=== PATIENT | female | born 1995 | race Hispanic/Latino ===

== ENCOUNTER 2017-07-25 14:15 | Emergency (ER) | payer OTHER, SELFPAY ==
[2017-07-25 15:40] LABS: Absolute Lymphocytes (CBC) 2.3 K/uL (0.7-4.9); Absolute Monocytes 0.6 K/uL (0.1-1.3); Absolute Neutrophil 5.3 K/uL (1.8-8.0); Basophils % 0.9 % (0-1.3); Eosinophils % 0.9 % (0-4.4); Hematocrit 30.7 % (36.0-45.0); Lymphocytes % 27.6 % (15.3-44.8); MCH 18.2 pg (27.0-35.0); MCV 58.8 fL (80-100); MPV 8.7 fL (7.6-11.3); Monocytes % 7.4 % (3.3-12.3); RBC Red Blood Cell Count 5.23 M/uL (3.86-4.86)
--- NOTE | 2017-07-25 15:40 | RAD REPORT ---
EXAM DESCRIPTION: US - Transvaginal OB - 07/25/2017 3:11 pm CLINICAL HISTORY: Vaginal bleeding, possible COMPARISON: None. TECHNIQUE: Endovaginal and limited transabdominal sonography performed. FINDINGS: Uterus is approximately 8.8 x 5.0 x 5.5 cm. No myometrial based mass identifiable. There i s a thickened, heterogeneous endometrial cavity. No gestational sac or sac remnant. No focal mass or polyp. The thickened endometrial stripe is believed to be a combination of endometrial tissue and hem orrhagic material. Right ovary is identified and unremarkable in appearance. No right adnexal mass. Left ovary was not i dentifiable. No left adnexal mass seen. Ectopic is not suspected on the current examination . No hemorrhage or free fluid in the cul-de-sac. IMPRESSION: Thickened endometrium and hemorrhagic material in the endometrial cavity. No gestational sac or sac remnant identified. No mass or polyp seen. Normal right ovary. Nonvisualization of the left ovary. No adnexal mass to suspect ectopic .
[2017-07-25 15:50] LABS: BUN Blood Urea Nitrogen 10 mg/dL (6-20); Bicarbonate 25 mEq/L (21-31); Glomerular Filtration Rate > 90 mL/min (=/>90); Glucose Level 88 mg/dL (65-120); Potassium 3.5 mEq/L (3.6-5.0); Sodium Level 137 mEq/L (135-145)
[2017-07-25] MEDS ORDERED: METHYLERGONOVINE 0.2MG/ML AMP IM ONE (16:29)
[2017-07-25] MEDS ORDERED: NA CHLORIDE 0.9% 1,000 ML ONE (16:29)
[2017-07-25] MEDS ORDERED: HYDROCODONE/APAP 10/325 TAB ONE (16:38)
--- NOTE | 2017-07-25 16:57 | EDPHYS ---
Physician Documentation [facility] Name: Mana Duque Age: 22 yrs Sex: Female : 1995 Arrival Date: 07/25/2017 Time: 14:15 Bed 5 Private MD: ED Physician Curry Garay HPI: 07/25 16:53 This 22 yrs old Female presents to ER via Ambulatory with complaints of gs Vaginal Bleeding, + Preg <12wks. 16:53 The patient presents to the emergency department with abdominal pain, of the suprapubic gs area, right lower quadrant and left lower quadrant, vaginal bleeding, that is moderate. The estimated gestational age is 8 weeks. Previous pregnancies: in previous pregnancies patient has had. Associated signs and symptoms: Pertinent negatives: fever. The patient has not experienced similar symptoms in the past. The patient has not recently seen a physician. 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 - Social history:: Smoking status: Patient/guardian denies using tobacco. ROS: 16:53 All other systems are negative. gs Exam: 16:53 Head/Face: Normocephalic, atraumatic. Eyes: Pupils equal round and reactive to light, gs extra-ocular motions intact. Lids and lashes normal. Conjunctiva and sclera are non-icteric and not injected. Cornea within normal limits. Periorbital areas with no swelling, redness, or edema. ENT: Nares patent. No nasal discharge, no septal abnormalities noted. Tympanic membranes are normal and external auditory canals are clear. Oropharynx with no redness, swelling, or masses, exudates, or evidence of obstruction, uvula midline. Mucous membranes moist. Neck: Trachea midline, no thyromegaly or masses palpated, and no cervical lymphadenopathy. Supple, full range of motion without nuchal rigidity, or vertebral point tenderness. No Meningismus. Chest/axilla: Normal chest wall appearance and motion. Nontender with no deformity. No lesions are appreciated. Cardiovascular: Regular rate and rhythm with a normal S1 and S2. No gallops, murmurs, or rubs. Normal PMI, no JVD. No pulse deficits. Respiratory: Lungs have equal breath sounds bilaterally, clear to auscultation and percussion. No rales, rhonchi or wheezes noted. No increased work of breathing, no retractions or nasal flaring. Abdomen/GI: Soft, non-tender, with normal bowel sounds. No distension or tympany. No guarding or rebound. No evidence of tenderness throughout. Back: No spinal tenderness. No costovertebral tenderness. Full range of motion. Skin: Warm, dry with normal turgor. Normal color with no rashes, no lesions, and no evidence of cellulitis. MS/ Extremity: Pulses equal, no cyanosis. Neurovascular intact. Full, normal range of motion. Neuro: Awake and alert, GCS 15, oriented to person, place, time, and situation. Cranial nerves II-XII grossly intact. Motor strength 5/5 in all extremities. Sensory grossly intact. Cerebellar exam normal. Normal gait. 16:53 Constitutional: The patient appears alert, awake. 16:53 : Pelvic Exam: External exam: is normal, Speculum exam: moderate bleeding, os that is open, bimanual exam reveals normal findings, no cervical motion tenderness, no adnexa tenderness or masses bilaterally. Vital Signs: 14:25 BP 128 / 89; Pulse 108; Resp 19; Temp 98.4; Pulse Ox 100% on R/A; Weight 83.91 kg; aj Height 5 ft. 7 in. (170.18 cm); Pain 10/10; 16:04 BP 122 / 72; Pulse 93; Resp 18; Pulse Ox 99% ; sv 17:01 BP 114 / 80; Pulse 96; Resp 18; Pulse Ox 100% ; sv 14:25 Body Mass Index 28.97 (83.91 kg, 170.18 cm) aj MDM: 14:42 Patient medically screened. 16:53 Differential diagnosis: threatened Ab, complete Ab, retained Ab. Data reviewed: vital gs signs, nurses notes. Response to treatment: the patient's symptoms have markedly improved after treatment. Physician consultation: Bailey Pham MD regarding consult, patient's condition, need to evaluate the patient as soon as possible, and will see patient in office. 07/25 14:43 Order name: Quantitative Hcg; Complete Time: 16:53 gs 07/25 14:43 Order name: Abo/rh Typing; Complete Time: 17:26 07/25 14:43 Order name: Basic Metabolic Panel; Complete Time: 16:53 07/25 14:43 Order name: CBC with Diff; Complete Time: 16:53 07/25 14:43 Order name: Transvaginal OB US; Complete Time: 15:43 07/25 14:43 Order name: IV Saline Lock; Complete Time: 15: 07/25 14:43 Order name: Labs collected and sent; Complete Time: 15: 07/25 14:43 Order name: NPO; Complete Time: 15: Administered Medications: 16:20 Drug: NS 0.9% 1000 ml Route: IV; Rate: 1 bolus; Site: right antecubital; sv 17:27 Follow up: Response: No adverse reaction; IV Status: Completed infusion; IV Intake: sv 1000ml 16:20 Drug: METHERgine 0.2 mg Route: IM; Site: right gluteus; sv 17:27 Follow up: Response: No adverse reaction sv 16:25 Drug: [place] 10 mg-325 mg 1 tabs Route: PO; sv 17:27 Follow up: Response: No adverse reaction sv Disposition: 07/25/17 16:56 Discharged to Home. Impression: Incomplete spontaneous without complication, Iron deficiency anemia. - Condition is Stable. - Discharge Instructions: Incomplete Miscarriage. - Prescriptions for Tylenol- Codeine #4 300-60 mg Oral Tablet - take 1 tablet by ORAL route every 6 hours As needed; 10 tablet. Methergine 0.2 mg Oral tablet - take 1 tablet by ORAL route every 8 hours; 6 tablet. Ferrous Sulfate 325 mg (65 mg Iron) Oral Tablet - take 1 tablet by ORAL route every 8 hours; 90 tablet. - Medication Reconciliation Form, Thank You Letter, Antibiotic Education, Prescription Opioid Use form. - Follow up: Private Physician; When: 2 - 3 days; Reason: Re-evaluation by your physician. Signatures: Dispatcher [employer] Ana Persaud RN Ayanna Molina RN RN aj Starr, Gregory, MD MD
--- NOTE | 2017-07-25 16:57 | ER ---
Nurse's Notes [facility] Name: Mana Duque Age: 22 yrs Sex: Female : 1995 Arrival Date: 07/25/2017 Time: 14:15 Bed 5 Private MD: Diagnosis: Incomplete spontaneous without complication;Iron deficiency anemia Presentation: 07/25 14:23 Presenting complaint: Patient states: Patient reports heavy vaginal bleeding since last aj night filling 4 pads per hour with large clots. Patient reports she is 8 weeks . Transition of care: patient was not received from another setting of care. Onset of symptoms was July 25, 2017. Care prior to arrival: None. 14:23 Method Of Arrival: Ambulatory aj 14:23 Acuity: TING 3 aj Triage Assessment: 14:25 General: Appears in no apparent distress. comfortable, Behavior is calm, cooperative, aj appropriate for age. Pain: Complains of pain in suprapubic area, right inguinal area and left inguinal area Pain currently is 10 out of 10 on a pain scale. Neuro: Level of Consciousness is awake, alert, obeys commands, Oriented to person, place, time, situation. Respiratory: Airway is patent Respiratory effort is even, unlabored, Respiratory pattern is regular, symmetrical. : Reports cramping, in bilateral vaginal bleeding that is with clots, heavy flow. Derm: Skin is intact, is healthy with good turgor, Skin is pink, warm \T\ dry. normal. 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 - Social history:: Smoking status: Patient/guardian denies using tobacco. Screenin:30 Abuse screen: Denies threats or abuse. Denies injuries from another. Nutritional sv screening: No deficits noted. Tuberculosis screening: No symptoms or risk factors identified. Fall Risk None identified. Assessment: 15:00 General: Appears in no apparent distress. comfortable, well developed, Behavior is sv calm, cooperative, appropriate for age. Pain: Denies pain. Neuro: Level of Consciousness is awake, alert, obeys commands, Oriented to person, place, time, situation, Moves all extremities. Full function. Respiratory: Respiratory effort is even, unlabored, Respiratory pattern is regular, symmetrical. : Reports vaginal bleeding that is bright red, with clots, moderate flow. Derm: Skin is pink, warm \T\ dry. Musculoskeletal: Range of motion: intact in all extremities. 15:44 Reassessment: Vaginal exam equipment set up. sv 16:20 Reassessment: Patient and/or family updated on plan of care and expected duration. Pain sv level reassessed. Patient is alert, oriented x 3, equal unlabored respirations, skin warm/dry/pink. Informed Dr Garay of pt's pain, medication ordered. Pain: Complains of pain in suprapubic area Pain currently is 10 out of 10 on a pain scale. Quality of pain is described as crampy, Is continuous. 17:27 Reassessment: Patient appears in no apparent distress at this time. No changes from sv previously documented assessment. Patient and/or family updated on plan of care and expected duration. Pain level reassessed. Patient is alert, oriented x 3, equal unlabored respirations, skin warm/dry/pink. Vital Signs: 14:25 BP 128 / 89; Pulse 108; Resp 19; Temp 98.4; Pulse Ox 100% on R/A; Weight 83.91 kg; aj Height 5 ft. 7 in. (170.18 cm); Pain 10/10; 16:04 BP 122 / 72; Pulse 93; Resp 18; Pulse Ox 99% ; sv 17:01 BP 114 / 80; Pulse 96; Resp 18; Pulse Ox 100% ; sv 14:25 Body Mass Index 28.97 (83.91 kg, 170.18 cm) ED Course: 14:15 Patient arrived in ED. as 14:25 Triage completed. aj 14:25 Arm band placed on left wrist. Patient placed in an exam room. aj 14:33 Curry Garay MD is Attending Physician. gs 15:10 Transvaginal OB US In Process Unspecified. EDMS 15:11 Ultrasound completed. aa4 15:30 Ana Chapin, MARKOS is Primary Nurse. sv 15:30 Patient has correct armband on for positive identification. Placed in gown. Bed in low sv position. Call light in reach. Door closed. Warm blanket given. Head of bed elevated. 15:30 Initial lab(s) drawn, by ED staff, sent to lab. Inserted saline lock: 20 gauge in right sv antecubital area, using aseptic technique. ,using aseptic technique. done by Jay [facility] Blood collected. 16:05 Assist provider with pelvic exam: Set up pelvic tray. Performed by Curry rivera Specimens sent to lab. POC passed, sent to pathology, Pt stated that she went to the bathroom in ultrasound and she felt like she passed the embryo and flushed the toilet. Pt stated that she didn't know what she was supposed to do. Pt crying at this time. Pt given verbal reassurance.. 17:28 IV discontinued, intact, bleeding controlled, No redness/swelling at site. Pressure sv dressing applied. Administered Medications: 16:20 Drug: NS 0.9% 1000 ml Route: IV; Rate: 1 bolus; Site: right antecubital; sv 17:27 Follow up: Response: No adverse reaction; IV Status: Completed infusion; IV Intake: sv 1000ml 16:20 Drug: METHERgine 0.2 mg Route: IM; Site: right gluteus; sv 17:27 Follow up: Response: No adverse reaction sv 16:25 Drug: [place] 10 mg-325 mg 1 tabs Route: PO; sv 17:27 Follow up: Response: No adverse reaction sv Intake: 17:27 IV: 1000ml; Total: 1000ml. sv Outcome: 16:56 Discharge ordered by . gs 17:28 Discharged to home ambulatory, with family. sv 17:28 Condition: stable 17:28 Discharge instructions given to patient, family, Instructed on discharge instructions, follow up and referral plans. no drinking with medication, no driving heavy equipment, medication usage, pelvic rest and increase fluids Demonstrated understanding of instructions, follow-up care, medications, Prescriptions given X 4. 17:30 Patient left the ED. sv Signatures: Dispatcher [employer] Ana Persaud RN RN sv Myers, Amanda, RN RN aj Martinez, Amelia as Frazier, Amanda aaCurry Gilliland MD MD
[2017-07-25 17:34] VITALS: TEMP 98.4
[2017-07-25 17:36] VITALS: BP 114/80; O2SAT 100
== END 2017-07-25 17:30 | disposition home or self-care (01) ==
LOC: ER 14:15
DX: O03.4 Incomplete spontaneous abortion without complication (principal); O99.011 Anemia complicating pregnancy, first trimester
CPT/HCPCS: 36415; 76817; 80048; 84702; 85025; 86900; 86901; 88305; 96360; 96372; 99284; J2210; J7030

== ENCOUNTER 2017-08-16 08:47 | Emergency (ER) | payer SELFPAY ==
[2017-08-16 09:48] LABS: Urine Blood TRACE (NEG); Urine Glucose NEGATIVE (NEG); Urine Protein NEGATIVE (NEG); Urine pH 5.5 (5.0-7.0)
[2017-08-16 09:49] LABS: Urine Bacteria <20 /HPF (<20); Urine RBC <5 /HPF (NONE SEEN)
[2017-08-16 09:50] LABS: Urine Culture Reflex Order NOT NEEDED
[2017-08-16 10:01] LABS: Bicarbonate 22 mEq/L (21-31); Glucose Level 83 mg/dL (65-120); Lipase 14 U/L (22-51); Sodium Level 135 mEq/L (135-145)
[2017-08-16 10:04] LABS: Absolute Lymphocytes (CBC) 2.1 K/uL (0.7-4.9); Absolute Monocytes 0.6 K/uL (0.1-1.3); Absolute Neutrophil 5.1 K/uL (1.8-8.0); Basophils % 0.4 % (0-1.3); Hematocrit 29.9 % (36.0-45.0); Lymphocytes % 26.8 % (15.3-44.8); MCH 19.1 pg (27.0-35.0); MCV 62.1 fL (80-100); MPV 8.6 fL (7.6-11.3); Monocytes % 7.1 % (3.3-12.3); RBC Red Blood Cell Count 4.82 M/uL (3.86-4.86)
[2017-08-16 10:07] LABS: ALT/SGPT 16 IU/L (10-60); AST/SGOT 18 IU/L (10-42); Albumin 3.9 g/dL (3.2-5.5); Alkaline Phosphatase 76 IU/L (42-121); BUN Blood Urea Nitrogen 11 mg/dL (6-20); Bilirubin Direct < 0.1 mg/dL (0-0.2); Bilirubin Total 0.2 mg/dL (0.3-1.2); Protein, Total 7.7 g/dL (6.0-8.3)
--- NOTE | 2017-08-16 10:15 | RAD REPORT ---
EXAM DESCRIPTION: US - Abdomen Exam Limited - 08/16/2017 10:10 am CLINICAL HISTORY: Right upper quadrant pain. COMPARISON: None. FINDINGS: The gallbladder demonstrates multiple shadowing gallstones. No pericholecystic fluid or ga llbladder wall thickening. The common bile duct is normal measuring 4 mm. The liver demonstrates no findings of intrahepatic biliary dilatation. IMPRESSION: Cholelithiasis.
[2017-08-16 11:01] LABS: Anisocytosis 2+; Blood Morphology Comment NOTED (NOT SEEN); Hypochromasia 2+; Ovalocytes 1+; Platelet Estimate ADEQ
--- NOTE | 2017-08-16 11:09 | EDPHYS ---
Physician Documentation [facility] Name: Mana Duque Age: 22 yrs Sex: Female : 1995 Arrival Date: 08/16/2017 Time: 08:51 Bed 20 Private MD: Lawanda Nj ED Physician Tre Guy HPI: 08/16 11:36 This 22 yrs old Female presents to ER via Ambulatory with complaints of kdr Stomach Pain. 11:36 The patient presents with abdominal pain in the epigastric area, in the right upper kdr quadrant, The patient states that she has had upper abdominal pain for the last few days that wraps around her infracostal margin more right than left. She has not had this before. She recently had a spontaneous miscarriage. She has no other c/o. Onset: The symptoms/episode began/occurred gradually, 3 day(s) ago. The symptoms radiate to both flanks, epigastric area and right upper quadrant. Associated signs and symptoms: Pertinent positives: constipation, nausea, Pertinent negatives: anorexia, blood in stools, chest pain, diarrhea, dysuria, fever, headache, hematuria, palpitations, shortness of breath, vaginal discharge, vomiting, vomiting blood. The symptoms are described as achy, burning, crampy, steady. Severity of pain: At its worst the pain was mild moderate just prior to arrival, in the emergency department the pain is unchanged. 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 - Social history:: Smoking status: Patient/guardian denies using tobacco. ROS: 11:36 Constitutional: Negative for fever, chills, and weight loss, Eyes: Negative for injury, kdr pain, redness, and discharge, Neck: Negative for injury, pain, and swelling, Cardiovascular: Negative for chest pain, palpitations, and edema, Respiratory: Negative for shortness of breath, cough, wheezing, and pleuritic chest pain, Back: Negative for injury and pain, : Negative for injury, bleeding, discharge, and swelling, MS/Extremity: Negative for injury and deformity, Skin: Negative for injury, rash, and discoloration, Neuro: Negative for headache, weakness, numbness, tingling, and seizure activity. Psych: Negative for depression, anxiety, suicide ideation, homicidal ideation, and hallucinations, Allergy/Immunology: Negative for hives, rash, and allergies, Endocrine: Negative for neck swelling, polydipsia, polyuria, polyphagia, and marked weight changes, Hematologic/Lymphatic: Negative for swollen nodes, abnormal bleeding, and unusual bruising. 11:36 Abdomen/GI: Positive for abdominal pain, Negative for nausea, abdominal cramps. Exam: 11:36 Constitutional: This is a well developed, well nourished patient who is awake, alert, kdr and in no acute distress. Head/Face: Normocephalic, atraumatic. ENT: Nares patent. No nasal discharge, no septal abnormalities noted. Tympanic membranes are normal and external auditory canals are clear. Oropharynx with no redness, swelling, or masses, exudates, or evidence of obstruction, uvula midline. Mucous membranes moist. Neck: Trachea midline, no thyromegaly or masses palpated, and no cervical lymphadenopathy. Supple, full range of motion without nuchal rigidity, or vertebral point tenderness. No Meningismus. Chest/axilla: Normal chest wall appearance and motion. Nontender with no deformity. No lesions are appreciated. Cardiovascular: Regular rate and rhythm with a normal S1 and S2. No gallops, murmurs, or rubs. Normal PMI, no JVD. No pulse deficits. Respiratory: Lungs have equal breath sounds bilaterally, clear to auscultation and percussion. No rales, rhonchi or wheezes noted. No increased work of breathing, no retractions or nasal flaring. Back: No spinal tenderness. No costovertebral tenderness. Full range of motion. Skin: Warm, dry with normal turgor. Normal color with no rashes, no lesions, and no evidence of cellulitis. MS/ Extremity: Pulses equal, no cyanosis. Neurovascular intact. Full, normal range of motion. Neuro: Awake and alert, GCS 15, oriented to person, place, time, and situation. Cranial nerves II-XII grossly intact. Motor strength 5/5 in all extremities. Sensory grossly intact. Cerebellar exam normal. Normal gait. Psych: Awake, alert, with orientation to person, place and time. Behavior, mood, and affect are within normal limits. 11:36 Abdomen/GI: Inspection: obese Bowel sounds: active, Palpation: soft, moderate abdominal tenderness, in the right upper quadrant, rebound tenderness, is not appreciated, tenderness to percussion, is appreciated in the epigastric area and right upper quadrant. Vital Signs: 09:16 BP 124 / 74; Pulse 79; Resp 18; Temp 97.9(TE); Pulse Ox 100% on R/A; Weight 90.72 kg; em Height 5 ft. 4 in. (162.56 cm); Pain 7/10; 10:14 BP 105 / 67; Pulse 68; Resp 18; Pulse Ox 99% on R/A; Pain 6/10; em 11:07 BP 112 / 81; Pulse 67; Resp 18; Pulse Ox 99% on R/A; Pain 2/10; em 09:16 Body Mass Index 34.33 (90.72 kg, 162.56 cm) em MDM: 09:29 Patient medically screened. kdr 11:36 Data reviewed: vital signs, nurses notes, lab test result(s), radiologic studies. kdr Counseling: I had a detailed discussion with the patient and/or guardian regarding: the historical points, exam findings, and any diagnostic results supporting the discharge/admit diagnosis, lab results, radiology results, the need for outpatient follow up. 08/16 09:15 Order name: Urine Microscopic Only; Complete Time: 10:18 jb1 08/16 09:19 Order name: Urine Dipstick--Ancillary (enter results); Complete Time: 10:18 bd 08/16 09:19 Order name: Urine --Ancillary (enter results); Complete Time: 10:18 bd 08/16 09:36 Order name: Basic Metabolic Panel; Complete Time: 10:18 kdr 08/16 09:36 Order name: CBC with Diff kdr 08/16 09:36 Order name: Creatinine for Radiology; Complete Time: 10:18 kdr 08/16 09:36 Order name: Hepatic Function; Complete Time: 10:18 kdr 08/16 09:36 Order name: Lipase; Complete Time: 10:18 kdr 08/16 09:36 Order name: IV Saline Lock; Complete Time: 09:47 kdr 08/16 09:36 Order name: Labs collected and sent; Complete Time: 09:47 [facility] 08/16 09:36 Order name: Urine Dipstick-Ancillary (obtain specimen); Complete Time: 09:47 kdr 08/16 09:36 Order name: US Abdomen Limited; Complete Time: 10:18 [facility] 08/16 10:10 Order name: Manual Differential EDMS Administered Medications: No medications were administered Disposition: 08/16/17 11:08 Discharged to Home. Impression: Abdominal and pelvic pain, Cholelithiasis. - Condition is Stable. - Discharge Instructions: Cholelithiasis, [id number], Abdominal Pain, Adult, [id number]. - Prescriptions for Bentyl 20 mg Oral Tablet - take 1 tablet by ORAL route every 6 hours As needed; 20 tablet. Pepcid 20 mg Oral Tablet - take 1 tablet by ORAL route every 12 hours for 5 days; 10 tablet. Zofran 4 mg Oral Tablet - take 1 tablet by ORAL route every 12 hours As needed; 6 tablet. Tramadol 50 mg Oral Tablet - take 1 tablet by ORAL route every 8 hours as needed; 12 tablet. - Medication Reconciliation Form, Thank You Letter, Prescription Opioid Use form. - Follow up: Lawanda Nj MD; When: 2 - 3 days; Reason: If symptoms return, Further diagnostic work-up, Recheck today's complaints, Continuance of care, Re-evaluation by your physician. - Problem is new. - Symptoms have improved. Signatures: Dispatcher [employer] EDMS Tre Guy MD MD kdr Roman Fontenot, PACKING MACHINE INSPECTOR PACKING MACHINE INSPECTOR em Palak Magaña RN RN Corrections: (The following items were deleted from the chart) 09:12 Allergies: NKA; 09:12 Home Meds: None; 09:12 PMHx: None; 09:12 PSHx: None; 09:12 Immunization history: Adult Immunizations not up to date, 09:12 Social history: Smoking status: Patient/guardian denies using tobacco, [facility]
--- NOTE | 2017-08-16 11:09 | ER ---
Nurse's Notes [facility] Name: Mana Duque Age: 22 yrs Sex: Female : 1995 Arrival Date: 08/16/2017 Time: 08:51 Bed 20 Private MD: Lawanda Nj Diagnosis: Abdominal and pelvic pain;Cholelithiasis Presentation: 08/16 09:10 Presenting complaint: Patient states: back pain that started on Saturday, now c/o em epigastric abd pain with N/D, denies fever, vomiting or pain with urination, last LMP 2 weeks ago. Transition of care: patient was not received from another setting of care. Onset of symptoms was August 02, 2017. Initial Sepsis Screen: Does the patient meet any 2 criteria? No. Patient's initial sepsis screen is negative. Does the patient have a suspected source of infection? No. Patient's initial sepsis screen is negative. Care prior to arrival: None. 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 - Social history:: Smoking status: Patient/guardian denies using tobacco. Screenin:17 Abuse screen: Denies threats or abuse. Nutritional screening: No deficits noted. em Tuberculosis screening: No symptoms or risk factors identified. Fall Risk None identified. Assessment: 09:19 General: Appears in no apparent distress. comfortable, Behavior is calm, cooperative, em Denies fever, chills. Pain: Complains of pain in epigastric area, right upper quadrant and left upper quadrant Pain currently is 7 out of 10 on a pain scale. Neuro: Level of Consciousness is awake, alert, obeys commands, Oriented to person, place, time, situation. Cardiovascular: Capillary refill < 3 seconds Patient's skin is warm and dry. Respiratory: Airway is patent Respiratory effort is even, unlabored, Respiratory pattern is regular, symmetrical. GI: Abdomen is round non-distended, Bowel sounds present X 4 quads. Abd is soft X 4 quads Abdomen is tender to palpation in right upper quadrant and left upper quadrant Reports diarrhea, nausea, Patient currently denies vomiting. : Urine is clear. EENT: No signs and/or symptoms were reported regarding the EENT system. Derm: Skin is intact, Skin is pink, warm \T\ dry. Musculoskeletal: Range of motion: intact in all extremities. 09:25 Reassessment: Patient appears in no apparent distress at this time. I agree with above iw assessment by Roman Fontenot LVN. 10:37 Reassessment: Patient appears in no apparent distress at this time. Patient and/or em family updated on plan of care and expected duration. Pain level reassessed. Patient is alert, oriented x 3, equal unlabored respirations, skin warm/dry/pink. 11:17 Reassessment: Patient appears in no apparent distress at this time. Patient and/or em family updated on plan of care and expected duration. Pain level reassessed. Patient is alert, oriented x 3, equal unlabored respirations, skin warm/dry/pink. Patient states feeling better. Patient states symptoms have improved. Vital Signs: 09:16 BP 124 / 74; Pulse 79; Resp 18; Temp 97.9(TE); Pulse Ox 100% on R/A; Weight 90.72 kg; em Height 5 ft. 4 in. (162.56 cm); Pain 7/10; 10:14 BP 105 / 67; Pulse 68; Resp 18; Pulse Ox 99% on R/A; Pain 6/10; em 11:07 BP 112 / 81; Pulse 67; Resp 18; Pulse Ox 99% on R/A; Pain 2/10; em 09:16 Body Mass Index 34.33 (90.72 kg, 162.56 cm) em ED Course: 08:51 Patient arrived in ED. na 08:52 Lawanda Nj MD is Private Physician. na 09:04 Roman Fontenot LVN is Primary Nurse. em 09:11 Triage completed. iw 09:15 Urine collected: clean catch specimen, cloudy, grant colored. jb1 09:18 Arm band placed on. em 09:21 Patient has correct armband on for positive identification. Bed in low position. Call em light in reach. Side rails up X2. Adult w/ patient. 09:21 No provider procedures requiring assistance completed. em 09:29 Rittger, Tre, MD is Attending Physician. kdr 09:46 Initial lab(s) drawn, by me, sent to lab. Inserted saline lock: 20 gauge in right em antecubital area, using aseptic technique. Blood collected. 09:51 Ultrasound completed. Other: AT BEDSIDE/PORTABLE. aa4 09:52 US Abdomen Limited In Process Unspecified. EDMS 11:07 Lawanda Nj MD is Referral Physician. kdr 11:20 IV discontinued, intact, bleeding controlled, No redness/swelling at site. Pressure em dressing applied. Administered Medications: No medications were administered Outcome: 11:08 Discharge ordered by . kdr 11:19 Discharged to home ambulatory. em 11:19 Condition: good 11:19 Discharge instructions given to patient, Instructed on discharge instructions, follow up and referral plans. medication usage, Demonstrated understanding of instructions, follow-up care, medications, Prescriptions given X 4. 11:21 Patient left the ED. em Signatures: Dispatcher [employer] EDMS Juanjose Decker jb1 Tre Guy MD MD kdr Sam Beebe Edgar, CONTACT LENS FLASHING PUNCHER CONTACT LENS FLASHING PUNCHER em Palak Magaña, RN RN iw Ayanna Beltran aa4 Corrections: (The following items were deleted from the chart) 09:10 Presenting complaint: Patient states: has had sore throat, body aches, chills iw since last night iw 09:10 Transition of care: patient was not received from another setting of care. [facility] 09:10 Onset of symptoms was August 16, 2017 [facility] 09:10 Initial Sepsis Screen: Does the patient meet any 2 criteria? No. Patient's initial sepsis screen is negative. Does the patient have a suspected source of infection? No. Patient's initial sepsis screen is negative. iw 09:10 Care prior to arrival: None. [facility] 09:10 Method Of Arrival: Ambulatory [facility] 09:10 Acuity: TING 4 [facility] 09:12 Allergies: NKA; 09:12 Home Meds: None; 09:12 PMHx: None; 09:12 PSHx: None; 09:12 Immunization history: Adult Immunizations not up to date, 09:12 Social history: Smoking status: Patient/guardian denies using tobacco, [facility] 09:12 BP 102 / 60; Pulse 103bpm; Resp 18bpm; Spontaneous; Pulse Ox 100% RA; Temp 97.7F iw Temporal; 73.48 kg; Height 5 ft. 3 in.; BMI: 28.7; Pain 4/10; 09:12 LMP 2014 09:12 Arm band placed on 09:10 Presenting complaint: Patient states: back pain that started on Saturday, now c/o em epigastric abd pain with N/D, denies fever or vomiting, last LMP 2 weeks ago em
[2017-08-16 11:27] VITALS: TEMP 97.9
[2017-08-16 11:28] VITALS: O2SAT 99
[2017-08-16 11:30] VITALS: BP 112/81
== END 2017-08-16 11:21 | disposition home or self-care (01) ==
LOC: ER 08:47
DX: K80.20 Calculus of gallbladder without cholecystitis without obstruction (principal)
CPT/HCPCS: 36415; 76705; 80048; 80076; 81003; 81015; 81025; 83690; 85025; 99284

== ENCOUNTER 2017-10-15 16:38 | Emergency (ER) | payer SELFPAY ==
[2017-10-15] MEDS ORDERED: NA CHLORIDE 0.9% 1,000 ML ONE (17:11)
[2017-10-15 17:21] LABS: Absolute Lymphocytes (CBC) 3.1 K/uL (0.7-4.9); Absolute Monocytes 0.6 K/uL (0.1-1.3); Absolute Neutrophil 5.2 K/uL (1.8-8.0); Basophils % 0.4 % (0-1.3); Eosinophils % 1.1 % (0-4.4); Hematocrit 25.5 % (36.0-45.0); MCH 20.6 pg (27.0-35.0); MCV 65.6 fL (80-100); MPV 7.4 fL (7.6-11.3); Monocytes % 6.9 % (3.3-12.3); RBC Red Blood Cell Count 3.89 M/uL (3.86-4.86)
[2017-10-15 17:25] LABS: Protime INR 1.08
[2017-10-15 17:34] LABS: BUN Blood Urea Nitrogen 10 mg/dL (7-18); Bicarbonate 24 mmol/L (21-32); Glucose Level 109 mg/dL (74-106); Potassium 3.8 mmol/L (3.5-5.1); Sodium Level 135 mmol/L (136-145)
[2017-10-15 18:34] LABS: Urine Blood 2+ (NEG); Urine Glucose NEGATIVE (NEG); Urine Protein NEGATIVE (NEG); Urine Specific Gravity <1.005 (1.005-1.030); Urine pH 5.5 (5.0-7.0)
--- NOTE | 2017-10-15 19:47 | ER ---
Nurse's Notes [facility] Name: Mana Duque Age: 22 yrs Sex: Female : 1995 Arrival Date: 10/15/2017 Time: 16:40 Bed 5 Private MD: Lawanda Nj Diagnosis: Abnormal uterine and vaginal bleeding, unspecified;Iron deficiency anemia Presentation: 10/15 16:45 Presenting complaint: Patient states: vaginal bleeding that began as spotting on Saturday aa5 and became heavier since today around 0400 and has gotten heavier throughout the day. Pt reports abdominal cramping. Pt reports having a miscarriage about a month ago. Pt appears pale. 16:45 Care prior to arrival: None. aa5 16:45 Transition of care: patient was not received from another setting of care. Onset of aa5 symptoms was October 15, 2017. Risk Assessment: Do you want to hurt yourself or someone else? Patient reports no desire to harm self or others. Initial Sepsis Screen: Does the patient meet any 2 criteria? No. Patient's initial sepsis screen is negative. Does the patient have a suspected source of infection? No. Patient's initial sepsis screen is negative. 16:45 Acuity: TING 2 aa5 16:45 Method Of Arrival: Ambulatory aa5 [employer]ER: 20:06 LMP 10/15/2017 aj Historical: - Allergies: 16:47 No Known Allergies; aa5 - PMHx: 16:47 None; aa5 - PSHx: 16:47 ; hernia; aa5 - Immunization history:: Adult Immunizations Adult Immunizations up to date. - Ebola Screening: : No symptoms or risks identified at this time. - Family history:: not pertinent. - Social history:: Smoking status: Patient/guardian denies using tobacco. - Hospitalizations: : No recent hospitalization is reported. Screenin:26 Abuse screen: Denies threats or abuse. Denies injuries from another. Nutritional aj screening: No deficits noted. Tuberculosis screening: No symptoms or risk factors identified. Fall Risk None identified. Assessment: 17:26 General: Appears in no apparent distress. comfortable, Behavior is calm, cooperative, aj appropriate for age. Pain: Denies pain. Neuro: Level of Consciousness is awake, alert, obeys commands, Oriented to person, place, time, situation, Appropriate for age. Respiratory: Airway is patent Respiratory effort is even, unlabored, Respiratory pattern is regular, symmetrical. GI: Abdomen is flat, non-distended. : bloody, Reports vaginal bleeding that is with clots, heavy flow. Derm: Skin is intact, is healthy with good turgor, Skin is pale. 18:31 Reassessment: Patient appears in no apparent distress at this time. No changes from aj previously documented assessment. Patient and/or family updated on plan of care and expected duration. Pain level reassessed. Patient is alert, oriented x 3, equal unlabored respirations, skin warm/dry/pink. Patient denies pain at this time. 20:05 Reassessment: Patient appears in no apparent distress at this time. No changes from aj previously documented assessment. Patient and/or family updated on plan of care and expected duration. Pain level reassessed. Patient is alert, oriented x 3, equal unlabored respirations, skin warm/dry/pink. Patient denies pain at this time. Patient states symptoms have improved. Vital Signs: 16:47 BP 121 / 73; Pulse 113; Resp 18 S; Temp 97.8(O); Pulse Ox 100% on R/A; aa5 18:29 BP 115 / 68; Pulse 98; Resp 20; Pulse Ox 99% on R/A; aj 20:05 BP 116 / 78; Pulse 94; Resp 16; Pulse Ox 99% on R/A; aj ED Course: 16:40 Patient arrived in ED. sb2 16:41 Lawanda Nj MD is Private Physician. sb2 16:49 Ayanna Corona, RN is Primary Nurse. aj 16:49 Arm band placed on Patient placed in an exam room, on a stretcher. aa5 16:52 Krishna Dobbs MD is Attending Physician. rn 16:56 Triage completed. aa5 17:26 Patient has correct armband on for positive identification. aj 17:26 No provider procedures requiring assistance completed. Inserted saline lock: 18 gauge shabbir in right antecubital area, using aseptic technique. Blood collected. 19:09 Assist provider with pelvic exam: Set up pelvic tray. Performed by Krishna shea Patient tolerated well. 20:05 IV discontinued, intact, bleeding controlled, No redness/swelling at site. Pressure aj dressing applied. Administered Medications: 17:25 Drug: NS 0.9% 1000 ml Route: IV; Rate: 1000 ml; Site: right antecubital; aj 20:07 Follow up: Response: No adverse reaction; IV Status: Completed infusion; IV Intake: aj 1000ml Intake: 20:07 IV: 1000ml; Total: 1000ml. aj Outcome: 19:46 Discharge ordered by . rn 20:05 Discharged to home ambulatory, with family. aj 20:05 Condition: good 20:05 Discharge instructions given to patient, Instructed on discharge instructions, follow up and referral plans. medication usage, Demonstrated understanding of instructions, follow-up care, medications, Prescriptions given X 1. 20:08 Patient left the ED. aj Signatures: Ayanna Corona RN RN Krishna Montana MD MD rn Calderon, Audri, RN RN aa5 Caity Holder2
--- NOTE | 2017-10-15 19:47 | EDPHYS ---
Physician Documentation [facility] Name: Mana Duque Age: 22 yrs Sex: Female : 1995 Arrival Date: 10/15/2017 Time: 16:40 Bed 5 Private MD: Lawanda Nj ED Physician Krishna Dobbs HPI: 10/15 17:06 This 22 yrs old Female presents to ER via Ambulatory with complaints of rn Vaginal Bleeding - CLOTTING. 17:06 The patient presents with vaginal bleeding that is. Onset: The symptoms/episode rn began/occurred 3 day(s) ago. Associated signs and symptoms: Pertinent positives: vaginal bleeding. Severity of symptoms: At their worst the symptoms were moderate, in the emergency department the symptoms are unchanged. The patient has not experienced similar symptoms in the past. The patient has not recently seen a physician. Reports miscarriage 1.5 months ago, has had 2 regular periods since then, no sex without condom, doesn't think she is , + vaginal bleeding that got worse today but started 3 days ago, no hx of heavy vaginal bleeding, no anticoagulation, no trauma. + lightheaded.. 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 - Ebola Screening: : No symptoms or risks identified at this time. - Family history:: not pertinent. - Social history:: Smoking status: Patient/guardian denies using tobacco. - Hospitalizations: : No recent hospitalization is reported. ROS: 17:06 Constitutional: Negative for fever, chills, and weight loss, Eyes: Negative for injury, rn pain, redness, and discharge, Cardiovascular: Negative for chest pain, palpitations, and edema, Respiratory: Negative for shortness of breath, cough, wheezing, and pleuritic chest pain, Abdomen/GI: + lower abd cramping : + vaginal bleeding MS/Extremity: Negative for injury and deformity, Skin: Negative for injury, rash, and discoloration, Neuro: Negative for headache, numbness, tingling, and seizure. Exam: 17:06 Constitutional: This is a well developed, well nourished patient who is awake, alert, rn and in no acute distress. Head/Face: Normocephalic, atraumatic. Neck: Trachea midline, no thyromegaly or masses palpated, and no cervical lymphadenopathy. Supple, full range of motion without nuchal rigidity, or vertebral point tenderness. No Meningismus. Cardiovascular: Regular rate and rhythm with a normal S1 and S2. No gallops, murmurs, or rubs. Normal PMI, no JVD. No pulse deficits. Respiratory: Lungs have equal breath sounds bilaterally, clear to auscultation and percussion. No rales, rhonchi or wheezes noted. No increased work of breathing, no retractions or nasal flaring. Abdomen/GI: + lower abd cramping Pelvic Exam: Normal external genitalia. Speculum exam with closed cervical os, no active bleeding, no trauma, large clot removed from vault MS/ Extremity: Pulses equal, no cyanosis. Neurovascular intact. Full, normal range of motion. Equal circumference. Neuro: Awake and alert, GCS 15, oriented to person, place, time, and situation. Cranial nerves II-XII grossly intact. Motor strength 5/5 in all extremities. Sensory grossly intact. Cerebellar exam normal. Normal gait. Vital Signs: 16:47 BP 121 / 73; Pulse 113; Resp 18 S; Temp 97.8(O); Pulse Ox 100% on R/A; aa5 18:29 BP 115 / 68; Pulse 98; Resp 20; Pulse Ox 99% on R/A; aj 20:05 BP 116 / 78; Pulse 94; Resp 16; Pulse Ox 99% on R/A; aj MDM: 16:52 Patient medically screened. rn 19:42 Differential diagnosis: dysmenorrhea, menometrorrhagia, uterine fibroids, urinary tract rn infection. Data reviewed: vital signs, nurses notes, lab test result(s), and as a result, I will discharge patient. Counseling: I had a detailed discussion with the patient and/or guardian regarding: the historical points, exam findings, and any diagnostic results supporting the discharge/admit diagnosis, lab results, the need for outpatient follow up, to return to the emergency department if symptoms worsen or persist or if there are any questions or concerns that arise at home. Response to treatment: the patient's symptoms have markedly improved after treatment, and as a result, I will discharge patient. Special discussion: I discussed with the patient/guardian in detail that at this point there is no indication for admission to the hospital. It is understood, however, that if the symptoms persist or worsen the patient needs to return immediately for re-evaluation. Based on the history and exam findings, there is no indication for further emergent testing or inpatient evaluation. I discussed with the patient/guardian the need to see the OB Gyne specialist for further evaluation of the symptoms. ED course: Pt with minimal blood in vault, showed , hemoglobin 8.0 but baseline in 9's. Normal vitals after fluids, has baseline iron deficiency anemia, taking iron supplementation, may be at end of this abnormal period, UPT neg, will dc home with provera as has had normal paps and no reason to suspect cancer. Sees dr diaz and will make appt this week.. 10/15 16:59 Order name: CBC with Diff 10/15 16:59 Order name: Basic Metabolic Panel; Complete Time: 17:45 10/15 16:59 Order name: Protime (+inr); Complete Time: 17:45 rn 10/15 16:59 Order name: Ptt, Activated; Complete Time: 17:45 10/15 16:59 Order name: Type And Screen; Complete Time: 18:24 rn 10/15 17:34 Order name: CBC Smear Scan EDNC 10/15 16:59 Order name: IV Start; Complete Time: 17:25 rn 10/15 16:59 Order name: Urine Dipstick-Ancillary (obtain specimen); Complete Time: 20:03 rn 10/15 16:59 Order name: Urine Test (obtain specimen); Complete Time: 20:03 rn 10/15 17:49 Order name: Test, Serum; Complete Time: 18:50 rn 10/15 17:50 Order name: Add On-Lab snw 10/15 18:20 Order name: Urine Dipstick--Ancillary (enter results); Complete Time: 18:50 bd Administered Medications: 17:25 Drug: NS 0.9% 1000 ml Route: IV; Rate: 1000 ml; Site: right antecubital; aj 20:07 Follow up: Response: No adverse reaction; IV Status: Completed infusion; IV Intake: aj 1000ml Disposition: 10/15/17 19:46 Discharged to Home. Impression: Abnormal uterine and vaginal bleeding, unspecified, Iron deficiency anemia. - Condition is Stable. - Discharge Instructions: Abnormal Uterine Bleeding, Iron Deficiency Anemia, Adult. - Prescriptions for medroxyprogesterone 10 mg Oral tablet - take 1 tablet by ORAL route once daily for 10 days; 10 tablet. - Medication Reconciliation Form, Thank You Letter, Antibiotic Education, Prescription Opioid Use form. - Follow up: Private Physician; When: 2 - 3 days; Reason: Recheck today's complaints, Re-evaluation by your physician. - Problem is new. - Symptoms have improved. Signatures: Dispatcher [employer] EDMS Ayanna Corona RN RN aj Nieto, Roman, MD MD rn Calderon, Audri, RN RN aa5 Corrections: (The following items were deleted from the chart) 19:43 17:06 Constitutional: This is a well developed, well nourished patient who is awake, rn alert, and in no acute distress. Head/Face: Normocephalic, atraumatic. Neck: Trachea midline, no thyromegaly or masses palpated, and no cervical lymphadenopathy. Supple, full range of motion without nuchal rigidity, or vertebral point tenderness. No Meningismus. Cardiovascular: Regular rate and rhythm with a normal S1 and S2. No gallops, murmurs, or rubs. Normal PMI, no JVD. No pulse deficits. Respiratory: Lungs have equal breath sounds bilaterally, clear to auscultation and percussion. No rales, rhonchi or wheezes noted. No increased work of breathing, no retractions or nasal flaring. Abdomen/GI: + lower abd cramping MS/ Extremity: Pulses equal, no cyanosis. Neurovascular intact. Full, normal range of motion. Equal circumference. Neuro: Awake and alert, GCS 15, oriented to person, place, time, and situation. Cranial nerves II-XII grossly intact. Motor strength 5/5 in all extremities. Sensory grossly intact. Cerebellar exam normal. Normal gait. rn 20:08 19:46 10/15/2017 19:46 Discharged to Home. Impression: Abnormal uterine and vaginal aj bleeding, unspecified; Iron deficiency anemia. Condition is Stable. Forms are Medication Reconciliation Form, Thank You Letter, Antibiotic Education, Prescription Opioid Use. Follow up: Private Physician; When: 2 - 3 days; Reason: Recheck today's complaints, Re-evaluation by your physician. Problem is new. Symptoms have improved. rn
[2017-10-15 20:12] VITALS: TEMP 97.8
[2017-10-15 20:13] VITALS: O2SAT 99
[2017-10-15 20:14] VITALS: BP 116/78
[2017-10-15 20:14] LABS: Anisocytosis 1+; Blood Morphology Comment NOTED (NOT SEEN); Hypochromasia 1+; Ovalocytes 1+; Platelet Estimate ADEQ; Urine White Blood Cell Casts OK
== END 2017-10-15 20:08 | disposition home or self-care (01) ==
LOC: ER 16:38
DX: N93.9 Abnormal uterine and vaginal bleeding, unspecified (principal); D50.9 Iron deficiency anemia, unspecified
CPT/HCPCS: 36415; 80048; 81003; 84703; 85025; 85610; 85730; 86850; 86900; 86901; 96360; 96361; 99284; J7030

== ENCOUNTER 2017-10-18 01:02 | Inpatient (IN) | payer SELFPAY ==
[2017-10-18] MEDS ORDERED: ACETAMINOPHEN 500 MG TAB ONE (01:45)
[2017-10-18] MEDS ORDERED: NA CHLORIDE 0.9% 1,000 ML ONE ×2 (01:45→03:05)
[2017-10-18 02:08] LABS: Absolute Lymphocytes (CBC) 2.6 K/uL (0.7-4.9); Absolute Monocytes 0.6 K/uL (0.1-1.3); Absolute Neutrophil 4.9 K/uL (1.8-8.0); Basophils % 0.2 % (0-1.3); Lymphocytes % 31.5 % (15.3-44.8); MCH 21.7 pg (27.0-35.0); MCV 67.7 fL (80-100); MPV 6.9 fL (7.6-11.3); Monocytes % 7.6 % (3.3-12.3); RBC Red Blood Cell Count 2.17 M/uL (3.86-4.86)
[2017-10-18 02:12] LABS: Protime INR 1.03
[2017-10-18 02:17] LABS: BUN Blood Urea Nitrogen 8 mg/dL (7-18); Bicarbonate 24 mmol/L (21-32); Glucose Level 104 mg/dL (74-106); Potassium 3.5 mmol/L (3.5-5.1); Sodium Level 142 mmol/L (136-145)
[2017-10-18 02:21] LABS: Hematocrit 14.7 % (36.0-45.0)
[2017-10-18 02:34] LABS: Blood Morphology Comment NOTED (NOT SEEN); Hypochromasia 1+; Platelet Estimate ADEQ; Polychromasia SLIGHT; Urine White Blood Cell Casts OK
[2017-10-18 02:36] LABS: Urine Blood NEGATIVE (NEG); Urine Glucose NEGATIVE (NEG); Urine Protein NEGATIVE (NEG); Urine Specific Gravity 1.015 (1.005-1.030); Urine pH 8.5 (5.0-7.0)
[2017-10-18 02:51] LABS: Urine Bacteria <20 /HPF (<20); Urine Culture Reflex Order NOT NEEDED; Urine RBC NONE SEEN /HPF (NONE SEEN)
[2017-10-18 02:58] LABS: ALT/SGPT 11 U/L (12-78); AST/SGOT 9 U/L (15-37); Albumin 2.7 g/dL (3.4-5.0); Alkaline Phosphatase 66 U/L (45-117); Bilirubin Direct < 0.1 mg/dL (0-0.2); Bilirubin Total 0.1 mg/dL (0.2-1.0); Protein, Total 6.1 g/dL (6.4-8.2)
[2017-10-18] MEDS ORDERED: NA CHLORIDE 0.9% 500 ML ONE (03:08)
--- NOTE | 2017-10-18 04:24 | ER ---
Nurse's Notes [facility] Name: Mana Duque Age: 22 yrs Sex: Female : 1995 Arrival Date: 10/18/2017 Time: 01:07 Bed 5 Private MD: Diagnosis: Anemia, unspecified;Other abnormal uterine and vaginal bleeding Presentation: 10/18 01:18 Presenting complaint: Patient states: Has been having nausea, dizziness, headache, lp1 fever at home that began today; States seen here in ED recently for blood loss from menstrual cycle. Transition of care: patient was not received from another setting of care. Onset of symptoms was October 18, 2017. Risk Assessment: Do you want to hurt yourself or someone else? Patient reports no desire to harm self or others. Initial Sepsis Screen: Does the patient meet any 2 criteria? No. Patient's initial sepsis screen is negative. Does the patient have a suspected source of infection? No. Patient's initial sepsis screen is negative. Care prior to arrival: None. 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 - Social history:: Smoking status: Patient/guardian denies using tobacco. - Ebola Screening: : No symptoms or risks identified at this time. Screenin:21 Abuse screen: Denies threats or abuse. Denies injuries from another. Nutritional lp1 screening: No deficits noted. Tuberculosis screening: No symptoms or risk factors identified. Fall Risk None identified. Assessment: 01:22 General: Appears uncomfortable, Behavior is appropriate for age. Pain: Complains of lp1 pain in head, abdomen Pain currently is 10 out of 10 on a pain scale. Neuro: Level of Consciousness is awake, alert, obeys commands. Cardiovascular: Patient's skin is warm and dry. Respiratory: Respiratory effort is even, unlabored, Respiratory pattern is regular, symmetrical. GI: Abdomen is round Abdomen is tender to palpation X 4 quads. Reports cramping, nausea. : No signs and/or symptoms were reported regarding the genitourinary system. EENT: No signs and/or symptoms were reported regarding the EENT system. Derm: Skin is pink, warm \T\ dry. Musculoskeletal: Circulation, motion, and sensation intact. 02:30 Reassessment: Patient appears in no apparent distress at this time. No changes from lp1 previously documented assessment. Patient and/or family updated on plan of care and expected duration. Pain level reassessed. 03:30 Reassessment: Patient appears in no apparent distress at this time. Patient receiving lp1 first unit of blood at this time. 04:30 Reassessment: Patient appears in no apparent distress at this time. Patient and/or lp1 family updated on plan of care and expected duration. Pain level reassessed. Patient is alert, oriented x 3, equal unlabored respirations, skin warm/dry/pink. 05:11 Reassessment: Patient appears in no apparent distress at this time. Patient and/or lp1 family updated on plan of care and expected duration. Pain level reassessed. Patient is alert, oriented x 3, equal unlabored respirations, skin warm/dry/pink. Patient states feeling better. Patient states symptoms have improved. Vital Signs: 01:19 BP 112 / 58; Pulse 136; Resp 18; Temp 101.2(O); Pulse Ox 100% on R/A; Weight 88 kg; lp1 Height 5 ft. 7 in. (170.18 cm); Pain 10/10; 02:10 BP 116 / 50; Pulse 118; Resp 19; Pulse Ox 100% on R/A; lp1 02:55 BP 105 / 45; Pulse 120; Resp 17; Temp 99.8(O); Pulse Ox 100% on R/A; lp1 03:30 BP 129 / 72; Pulse 120; Resp 17; Temp 99.9(O); Pulse Ox 100% on R/A; lp1 03:30 lp1 05:28 BP 98 / 51; Pulse 113; Resp 20; Temp 99.8(O); Pulse Ox 100% on R/A; lp1 01:19 Body Mass Index 30.38 (88.00 kg, 170.18 cm) lp1 03:30 See Blood Transfusion Flowsheet for further vitals lp1 ED Course: 01:07 Patient arrived in ED. es 01:12 Ally Champion, MARKOS is Primary Nurse. lp1 01:12 Ellis Maurer NP is PHCP. pm1 01:12 Curry Garay MD is Attending Physician. pm1 01:19 Triage completed. lp1 01:19 Arm band placed on right wrist. lp1 01:22 Patient has correct armband on for positive identification. Placed in gown. Bed in low lp1 position. Pulse ox on. NIBP on. 01:[address] via stretcher. lp1 01:58 Initial lab(s) drawn, by me, sent to lab. Inserted saline lock: 20 gauge in right ks6 antecubital area, using aseptic technique. Blood collected. 02:09 CT Abd/Pelvis - W/Contrast: IV contrast only In Process Unspecified. EDMS 02:09 CT completed. Patient tolerated procedure well. Patient moved back from CT. eh 02:24 Urine collected: straight cath specimen, clear. lp1 02:30 Notified Nurse Practitioner and/or Physician Database Software Technician of a critical lab result(s), Hgb bb 4.7, Hct 14.7. Ivan Maurer MEAL ATTENDANT notified. 02:56 Assist provider with pelvic exam: Set up pelvic tray. Performed by Ellis Maurer NP. lp1 03:14 Inserted saline lock: 20 gauge in left antecubital area, using aseptic technique. ks6 Missed attempt(s): 20 gauge in left antecubital area. 04:23 Lisbet Brown MD is Hospitalizing Provider. pm1 05:10 Patient admitted, IV remains in place. lp1 Administered Medications: 01:48 Drug: Tylenol 1000 mg Route: PO; lp1 02:57 Follow up: Response: Temperature is decreased lp1 02:05 Drug: NS 0.9% 1000 ml Route: IV; Rate: 1000 ml; Site: right antecubital; lp1 02:57 Follow up: IV Status: Completed infusion; IV Intake: 1000ml lp1 03:10 Drug: NS 0.9% 1000 ml Route: IV; Rate: 1000 ml; Site: left antecubital; mg2 04:30 Follow up: IV Status: Completed infusion lp1 Intake: 02:57 IV: 1000ml; Total: 1000ml. lp1 05:34 IV: 271ml (Blood Products); Total: 1271ml. lp1 Outcome: 04:24 Decision to Hospitalize by Provider. pm1 05:10 Condition: stable lp1 05:10 Instructed on the need for admit. 05:26 Admitted to Med/surg accompanied by nurse, via stretcher, room 210, with chart, Report lp1 called to Kristie Magaña RN 05:37 Patient left the ED. mg2 Signatures: Dispatcher [employer] EDMS Pricilla Mendoza Ervin eh Ballard, Brenda RN RN bb Ally Champion RN RN lp1 Ellis Maurer, GWYN MEAL ATTENDANT pm1 Júnior Rasmussen RN RN mg2 Danis [id number] Corrections: (The following items were deleted from the chart) 02:06 01:[address] via wheelchair. lp1 lp1
--- NOTE | 2017-10-18 04:24 | EDPHYS ---
Physician Documentation [facility] Name: Mana Duque Age: 22 yrs Sex: Female : 1995 Arrival Date: 10/18/2017 Time: 01:07 Bed 5 Private MD: ED Physician Curry Garay HPI: 10/18 03:07 This 22 yrs old Female presents to ER via Wheelchair with complaints of pm1 Vaginal bleeding. 03:07 The patient presents with vaginal bleeding that is with clots. Onset: The pm1 symptoms/episode began/occurred 3 day(s) ago. Modifying factors: The symptoms are alleviated by nothing, the symptoms are aggravated by nothing. Associated signs and symptoms: Pertinent positives: fever, nausea, vaginal bleeding, Dizziness, Abdominal pain, Pertinent negatives: dysuria, vomiting. Severity of symptoms: in the emergency department the symptoms. The patient is sexually active, reportedly has a single partner, uses protection during intercourse. The patient's method of control includes condom. The patient has been recently seen at the [facility] Emergency Department, this week, for similar complaints labs were performed. Onset heavy vaginal bleeding with clots on Saturday. patient was seen here 3 days ago for complaint of heavy vaginal bleeding with clots. Patient with hgb 8.0 at that time. Continued vaginal bleeding with 3-4 golfball sized clots per day. Patient with nausea, dizziness, and headache with vaginal bleeding. Today patient with onset of fever. Has a history of anemia since she was a teenager. Currently taking iron pills. No prior history of heavy menstrual cycles. 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 - Social history:: Smoking status: Patient/guardian denies using tobacco. - Ebola Screening: : No symptoms or risks identified at this time. ROS: 03:07 Positive for pelvic pain, vaginal bleeding, Negative for urinary symptoms, flank pm1 pain, vaginal discharge. 03:07 Eyes: Negative for injury, pain, redness, and discharge. 03:07 ENT: Negative for injury, pain, and discharge, Neck: Negative for injury, pain, and swelling, Cardiovascular: Negative for chest pain, palpitations, and edema, Respiratory: Negative for shortness of breath, cough, wheezing, and pleuritic chest pain. 03:07 Back: Negative for injury and pain, MS/Extremity: Negative for injury and deformity, Skin: Negative for injury, rash, and discoloration. 03:07 Constitutional: Positive for fever, Negative for body aches, poor PO intake. 03:07 Abdomen/GI: Positive for nausea, Negative for vomiting, diarrhea. 03:07 Neuro: Positive for dizziness, headache, Negative for numbness, tingling. Exam: 03:07 Constitutional: This is a well developed, well nourished patient who is awake, alert, pm1 and in no acute distress. Head/Face: Normocephalic, atraumatic. 03:07 ENT: Nares patent. No nasal discharge, no septal abnormalities noted. Tympanic membranes are normal and external auditory canals are clear. Oropharynx with no redness, swelling, or masses, exudates, or evidence of obstruction, uvula midline. Mucous membranes moist. Neck: Trachea midline, no thyromegaly or masses palpated, and no cervical lymphadenopathy. Supple, full range of motion without nuchal rigidity, or vertebral point tenderness. No Meningismus. Chest/axilla: Normal chest wall appearance and motion. Nontender with no deformity. No lesions are appreciated. Cardiovascular: Regular rate and rhythm with a normal S1 and S2. No gallops, murmurs, or rubs. Normal PMI, no JVD. No pulse deficits. Respiratory: Lungs have equal breath sounds bilaterally, clear to auscultation and percussion. No rales, rhonchi or wheezes noted. No increased work of breathing, no retractions or nasal flaring. Abdomen/GI: Soft, non-tender, with normal bowel sounds. No distension or tympany. No guarding or rebound. No evidence of tenderness throughout. Back: No spinal tenderness. No costovertebral tenderness. Full range of motion. 03:07 MS/ Extremity: Pulses equal, no cyanosis. Neurovascular intact. Full, normal range of motion. 03:07 Eyes: Periorbital structures: appear normal, Pupils: no acute changes, equal, round, and reactive to light and accomodation, Extraocular movements: intact throughout, Conjunctiva: normal, no exudate, no injection, no abnormal tearing, Corneas: are normal, pale mucous membranes. 03:07 : Pelvic Exam: External exam: is normal, Speculum exam: scant bleeding, no cervicitis, os that is closed, No blood clots in the vault, bimanual exam reveals normal findings, no cervical motion tenderness, no uterine tenderness, no adnexa tenderness or masses bilaterally, Letty BURROWS. 03:07 Skin: Appearance: normal except for affected area, Color: pale. 03:07 Neuro: Orientation: is normal, Cranial nerves: CN II- XII are normal as tested, Cerebellar function: normal finger to nose testing, Motor: moves all fours, Sensation: is normal, no obvious gross deficits. Vital Signs: 01:19 BP 112 / 58; Pulse 136; Resp 18; Temp 101.2(O); Pulse Ox 100% on R/A; Weight 88 kg; lp1 Height 5 ft. 7 in. (170.18 cm); Pain 10/10; 02:10 BP 116 / 50; Pulse 118; Resp 19; Pulse Ox 100% on R/A; lp1 02:55 BP 105 / 45; Pulse 120; Resp 17; Temp 99.8(O); Pulse Ox 100% on R/A; lp1 03:30 BP 129 / 72; Pulse 120; Resp 17; Temp 99.9(O); Pulse Ox 100% on R/A; lp1 03:30 lp1 05:28 BP 98 / 51; Pulse 113; Resp 20; Temp 99.8(O); Pulse Ox 100% on R/A; lp1 01:19 Body Mass Index 30.38 (88.00 kg, 170.18 cm) lp1 03:30 See Blood Transfusion Flowsheet for further vitals lp1 MDM: 01:25 Patient medically screened. pm1 04:22 Data reviewed: vital signs. Data interpreted: Pulse oximetry: on room air is 100 %. pm1 Interpretation: normal. Counseling: I had a detailed discussion with the patient and/or guardian regarding: the historical points, exam findings, and any diagnostic results supporting the discharge/admit diagnosis, lab results, radiology results, the need for further work-up and treatment in the hospital. 04:22 Physician consultation: Lisbet Brown MD was called at 04:22, was contacted at 04:22, pm1 regarding admission, patient's condition, and will see patient. 10/18 01:34 Order name: CBC with Diff; Complete Time: 02:35 pm10/18 01:34 Order name: Basic Metabolic Panel; Complete Time: 02:29 pm10/18 01:37 Order name: Urine Microscopic Only; Complete Time: 02:56 pm1 10/18 01:37 Order name: Type And Screen pm10/18 01:37 Order name: Ptt, Activated; Complete Time: 02:29 pm10/18 01:37 Order name: PT-INR; Complete Time: 02:29 pm10/18 02:25 Order name: Urine Dipstick--Ancillary (enter results); Complete Time: 02:37 2 10/18 02:25 Order name: Urine --Ancillary (enter results); Complete Time: 02:37 [facility] 10/18 02:34 Order name: CBC Smear Scan; Complete Time: 02:35 EDAZ 10/18 02:35 Order name: Hepatic Function; Complete Time: 03:22 pm10/18 02:37 Order name: Add On-Lab 10/18 02:59 Order name: Procalcitonin; Complete Time: 03:55 1 10/18 03:07 Order name: Packed RBC Leukored -1 [facility] 10/18 05:32 Order name: Retic Count [facility] 10/18 01:34 Order name: Urine Test (obtain specimen); Complete Time: 02:08 pm10/18 01:34 Order name: IV Saline Lock; Complete Time: 01:58 pm10/18 01:34 Order name: Labs collected and sent; Complete Time: 01:59 pm10/18 01:34 Order name: Urine Dipstick-Ancillary (obtain specimen); Complete Time: 02:29 pm10/18 01:37 Order name: CT Abd/Pelvis - W/Contrast: IV contrast only pm10/18 02:14 Order name: Straight Cath - Urine; Complete Time: 02:24 pm10/18 02:29 Order name: Pelvic Exam Setup; Complete Time: 02:56 pm1 10/18 02:35 Order name: Transfuse; Complete Time: 05:13 pm1 Administered Medications: 01:48 Drug: Tylenol 1000 mg Route: PO; lp1 02:57 Follow up: Response: Temperature is decreased lp1 02:05 Drug: NS 0.9% 1000 ml Route: IV; Rate: 1000 ml; Site: right antecubital; lp1 02:57 Follow up: IV Status: Completed infusion; IV Intake: 1000ml lp1 03:10 Drug: NS 0.9% 1000 ml Route: IV; Rate: 1000 ml; Site: left antecubital; mg2 04:30 Follow up: IV Status: Completed infusion lp1 Disposition: 19:06 Co-signature as Attending Physician, Curry Garay MD. Disposition: 10/18/17 04:24 Hospitalization ordered by Lisbet Brown for Inpatient Admission. Preliminary diagnosis are Anemia, unspecified, Other abnormal uterine and vaginal bleeding. - Bed requested for Telemetry/MedSurg (Inpatient). - Status is Inpatient Admission. mg2 - Condition is Stable. - Problem is new. - Symptoms have improved. UTI on Admission? No Signatures: Dispatcher [employer] EDMS Lorena Henley RN RN Ally Champion RN RN [facility] Ellis Maurer, GWYN WEB MARKETING ASSISTANT 1 Curry Garay MD MD Júnior Rasmussen RN RN mg2 Corrections: (The following items were deleted from the chart) 04:35 04:24 Hospitalization Ordered by Lisbet Brown MD for Inpatient Admission. Preliminary diagnosis is Anemia, unspecified; Other abnormal uterine and vaginal bleeding. Bed requested for Telemetry/MedSurg (Inpatient). Status is Inpatient Admission. Condition is Stable. Problem is new. Symptoms have improved. UTI on Admission? No. pm1 05:37 04:35 10/18/2017 04:24 Hospitalization Ordered by Lisbet Brown MD for Inpatient mg2 Admission. Preliminary diagnosis is Anemia, unspecified; Other abnormal uterine and vaginal bleeding. Bed requested for Telemetry/MedSurg (Inpatient). Status is Inpatient Admission. Condition is Stable. Problem is new. Symptoms have improved. UTI on Admission? No. mw
[2017-10-18] MEDS ORDERED: ACETAMINOPHEN 500 MG TAB PO PRN (04:55)
[2017-10-18] MEDS ORDERED: ONDANSETRON 4 MG/2 ML VIAL IV PRN (04:55)
[2017-10-18] MEDS ORDERED: NA CHLORIDE 0.9% 1,000 ML IV SCH (05:00)
[2017-10-18 05:30] LABS: RBC Red Blood Cell Count 2.34 M/uL (3.86-4.86)
[2017-10-18] MEDS ORDERED: NA CHLORIDE 0.9% 250 ML ONE ×2 (05:53→12:45)
[2017-10-18 06:09] LABS: Ferritin 4.2 ng/mL (8-388)
[2017-10-18 06:10] VITALS: BMI 32.2
[2017-10-18] MEDS ORDERED: CYANOCOBALAMIN 1,000 MCG TAB SL SCH (09:00)
--- NOTE | 2017-10-18 09:41 | P.DS ---
Admission Date: 10/18/17 Discharge Date: 10/18/17 Primary Care Provider: Marizol Weaver Disposition: ROUTINE DISCHARGE Discharge Condition: GOOD Reason for Admission: Dizziness, fatigue Procedures: CT scan: FINDINGS: The liver, spleen, pancreas, adrenals and kidneys appear unremarkable. The appendix is normal. There is no evidence of diverticulitis. An umbilical hernia contains fat. The neck measures 25 mm. Within the right adnexa is a 3.6 cm complex cystic structure. A small amount of free fluid is seen. Gallstones are present. The gallbladder is contracted. IMPRESSION: 1. A 3.6 cm complex cystic structure within the right adnexal probably representing a hemorrhagic ovarian cyst. A small amount of free fluid is present. Ultrasound is recommended for further evaluation. 2. Umbilical hernia containing fat. 3. Cholelithiasis Transvaginal ultrasound: FINDINGS: Mildly heterogenous appearance of the uterine myometrium seen. The uterus measures 9.1 x 5.7 x 4.6 cm The endometrial stripe measures 2.5 cm and is heterogenous. Both ovaries are normal in size, shape and echotexture. The right ovary measures 2.1 x 4.7 cm. The left ovary measures 3.3 x 2.6 cm. Right ovarian hemorrhagic cyst identified measuring 2.6 x 1.8 cm. No adnexal masses. Normal Doppler blood flow was demonstrated to both ovaries. Mild pelvic free fluid. IMPRESSION: Thickened and heterogenous appearance to the endometrium is noted.This may indicate underlying endometrial polyp or hyperplasia. Direct visualization may be considered for further evaluation. 2.6 x 1.8 cm hemorrhagic right ovarian cyst, most likely functional/benign in nature. - Problems (1) Ovarian cyst Current Visit: Yes Status: Acute Qualifiers: Laterality: left Qualified Code(s): N83.202 - Unspecified ovarian cyst, left side (2) Abnormal vaginal bleeding Onset Date: 10/18/17 Current Visit: Yes Status: Acute (3) Anemia Onset Date: 10/18/17 Current Visit: Yes Status: Acute Qualifiers: Anemia type: other cause (4) Cholelithiasis Current Visit: Yes Status: Chronic Qualifiers: Cholelithiasis location: gallbladder Cholecystitis presence: without cholecystitis Biliary obstruction: without biliary obstruction Qualified Code(s): K80.20 - Calculus of gallbladder without cholecystitis without obstruction (5) Umbilical hernia Current Visit: Yes Status: Chronic Qualifiers: Obstruction and gangrene presence: without obstruction or gangrene Qualified Code(s): K42.9 - Umbilical hernia without obstruction or gangrene (6) GERD (gastroesophageal reflux disease) Current Visit: Yes Status: Suspected Qualifiers: Esophagitis presence: esophagitis presence not specified Qualified Code(s) : K21.9 - Gastro-esophageal reflux disease without esophagitis Brief History of Present Illness: 22-year-old female present emergency room with fatigue and dizziness. Patient was seen earlier in the week for abnormal vaginal bleeding. She hemoglobin was around 8.0. Patient reports a history of iron deficiency. At that time in the Emergency she was sent home with control medication. Her vaginal bleeding has improved. Repeat lab shows severe anemia. The patient was admitted for transfusion and further evaluation. Hospital Course: Patient presented with fatigue and dizziness likely due to severe anemia. Patient found to have iron and B12 deficiency. Patient with recent abnormal vaginal bleeding. Patient also reported history of miscarriage in the past year. Patient recently started control medication a couple of days ago after given control medication by the ER. While in the hospital patient received 3 units of packed red blood cells. Hemoglobin stable at discharge. CT scan of the abdomen and transvaginal ultrasound done. CT scan showed 3.6 cm complex cystic mass to the right side, umbilical hernia, and cholelithiasis. Transvaginal ultrasound showed a 2.6 x 1.8 cm hemorrhagic right ovarian cyst, likely benign. Thickened and heterogeneous appearance to the endometrium was noted. This is likely related to underlying possible endometrial polyp or hyperplasia. At discharge patient will continue with iron and B12 supplementation. Patient may require IV iron and B12 intramuscular as an outpatient if she continues to have anemia. At discharge she will continue with iron 325 mg 1 pill twice daily and B12 1000 mcg daily. Recommendation is to recheck CBC in 1 week monitor progress. Repeat iron and B12 levels may be repeated in 1 month. Patient may continue with control medication. Recommendations for the patient follow up with gynecology within 1 week to follow up this hospitalization. Patient will need further evaluation to address the ovarian cyst and hyperplasia to the endometrium. Patient found to have umbilical hernia. No obstruction noted. Recommend no heavy lifting, pushing or pulling is recommended. Patient may follow up with surgeries now patient if this worsens. Education on umbilical hernia will be provided. Patient found to have cholelithiasis without cholecystitis. If she develops more symptoms in the future the patient may require surgical evaluation. Education on cholelithiasis will be provided. Patient likely has GERD. Patient will continue with Protonix 40 mg 1 pill once daily. Patient may require GI evaluation as an outpatient if this persists. Vital Signs/Physical Exam: Temp Pulse Resp BP Pulse Ox 98.8 F 98 H 20 106/57 L 100 10/18/17 08:00 10/18/17 08:00 10/18/17 08:00 10/18/17 08:00 10/18/17 08:00 General: Alert, In no apparent distress, Oriented x3, Cooperative HEENT: Atraumatic, Mucous membr. moist/pink Neck: Supple, No Thyromegaly Respiratory: Clear to auscultation bilaterally, Normal air movement Cardiovascular: Normal pulses, Regular rate/rhythm Gastrointestinal: Normal bowel sounds, Soft and benign, Non-distended, No tenderness, No masses, No rebound, No guarding Musculoskeletal: No contractures, No erythema, No tenderness, No warmth Integumentary: No tenderness/swelling, No erythema, No warmth, No cyanosis Neurological: Normal speech, Normal strength at 5/5 x4 extr, Normal tone, Normal affect Lymphatics: No axilla or inguinal lymphadenopathy Laboratory Data at Discharge: WBC 8.3 K/uL (4.3-10.9) 10/18/17 01:47 Hgb 4.7 g/dL (12.0-15.0) L* D 10/18/17 01:47 Hct 14.7 % (36.0-45.0) L* D 10/18/17 01:47 Plt Count 280 K/uL (152-406) D 10/18/17 01:47 PT 12.1 SECONDS (9.5-12.5) 10/18/17 01:47 INR 1.03 10/18/17 01:47 APTT 26.4 SECONDS (24.3-36.9) 10/18/17 01:47 Sodium 142 mmol/L (136-145) 10/18/17 01:47 Potassium 3.5 mmol/L (3.5-5.1) 10/18/17 01:47 BUN 8 mg/dL (7-18) 10/18/17 01:47 Creatinine 0.60 mg/dL (0.55-1.3) 10/18/17 01:47 Glucose 104 mg/dL (74-106) 10/18/17 01:47 Total Bilirubin 0.1 mg/dL (0.2-1.0) L 10/18/17 01:47 AST 9 U/L (15-37) L 10/18/17 01:47 ALT 11 U/L (12-78) L 10/18/17 01:47 Alkaline Phosphatase 66 U/L (45-117) 10/18/17 01:47 Home Medications: Ascorbic Acid/Ascorbate Sodium [Vit C-Eugenia Hips 500 mg Chew Tb] 1 tab PO DAILY 10/18/17 Cyanocobalamin [Vitamin B-12*] 1,000 mcg SL DAILY #30 tab 10/18/17 Ferrous Sulfate [Iron] 325 mg PO BID #60 tablet 10/18/17 Multivit-Min/Folic Acid/Biotin [Women Multivit W-Biotin Gummy] 1 tab PO DAILY Pantoprazole [Protonix Tab] 40 mg PO DAILY #30 tab 10/18/17 New Medications: Cyanocobalamin [Vitamin B-12*] 1,000 mcg SL DAILY #30 tab Ferrous Sulfate [Iron] 325 mg PO BID #60 tablet Pantoprazole [Protonix Tab] 40 mg PO DAILY #30 tab Patient Discharge Instructions: 1. Patient will need to follow up with a PCP to monitor her progress and to establish care. 2. Patient found to have severe Anemia requiring blood transfusions. Patient received a total of 3 units of packed red blood cells. Patient with history of iron deficiency. Patient found to have iron and B12 deficiency. At discharge, she will need to continue with Iron 325 mg one pill twice daily and B12 1000 mcg one pill daily. Patient may require IV iron as an outpatient if she is not able to tolerate her oral iron or she is not able to digest it. This can be further addressed by her PCP or with GI in the future. Recommendation to recheck lab-CBC in 1-2 weeks to further monitor. Recheck iron and B12 level in 1 month is recommended. Her PCP can further adjust medication and to establish care. 3. Patient with abnormal vaginal bleeding. CT scan and transvaginal ultrasound confirms right- sided ovarian cyst. Endometrial hyperplasia also noted. Patient may continue with per control medication. Recommendation is for the patient to follow up with gynecology within 1 week to follow up this hospitalization and continue her care. Further evaluation maybe required. 4. Patient found to have umbilical hernia. No obstruction noted. Recommendation on no heavy lifting, pushing or pulling. Patient may need to follow up with surgery as an outpatient if this worsens. Education on umbilical hernia will be provided. 5. Patient found to have cholelithiasis without cholecystitis. Education on cholelithiasis will be provided. If she develops symptoms in the future patient may require surgical evaluation as an outpatient. 6. Patient may have underlying GERD. At discharge patient continue with Protonix 40 mg 1 pill once daily. Patient may need GI evaluation as an outpatient to further address. Diet: AHA Activity: Ad kat Time spent managing pt's care (in minutes): 55
--- NOTE | 2017-10-18 11:15 | RAD REPORT ---
EXAM DESCRIPTION: CT - Abdomen Pelvis W Contrast - 10/18/2017 4:28 am CLINICAL HISTORY: Abdominal pain/generalized surgery date 1-6 months ago . COMPARISON: June 2017 ultrasound. TECHNIQUE: Computed axial tomography of the abdomen pelvis was obtained. 100 cc Isovue-300 was admin istered intravenously. Oral contrast was not requested which limits evaluation of bowel.A preliminary report was generated by [employer] and reviewed prior to this dictation All CT scans are performed using dose optimization technique as appropriate and may include automated exposure control or mA/KV adjustment according to patient size. FINDINGS: The liver, spleen, pancreas, adrenals and kidneys appear unremarkable. The appendix is normal. There is no evidence of diverticulitis. An umbilical hernia contains fat. The neck measures 25 mm. Within the right adnexa is a 3.6 cm complex cystic structure. A small amount of free fluid is seen. Gallstones are present. The gallbladder is contracted. IMPRESSION: 1. A3.6 cm complex cystic structure within the right adnexal probably representing a hem orrhagic ovarian cyst. A small amount of free fluid is present. Ultrasound is recommended for further evaluation. 2. Umbilical hernia containing fat. 3. Cholelithiasis
--- NOTE | 2017-10-18 11:23 | RAD REPORT ---
EXAM DESCRIPTION: US - Transvaginal Study Probe - 10/18/2017 10:54 am CLINICAL HISTORY: menorrhagia; ovarian cyst; recent miscarriage Pelvic pain. COMPARISON: No comparisons FINDINGS: Mildly heterogenous appearance of the uterine myometrium seen. The uterus measures 9.1 x 5 .7 x 4.6 cm The endometrial stripe measures 2.5 cm and is heterogenous. Both ovaries are normal in size, shape and echotexture. The right ovary measures 2.1 x 4.7 cm. The left ovary measures 3.3 x 2.6 cm. Right ovarian hemorrhagic cyst identified measuring 2.6 x 1.8 cm. N o adnexal masses. Normal Doppler blood flow was demonstrated to both ovaries. Mild pelvic free fluid. IMPRESSION: Thickened and heterogenous appearance to the endometrium is noted.This may indicate unde rlying endometrial polyp or hyperplasia. Direct visualization may be considered for further evaluatio n. 2.6 x 1.8 cm hemorrhagic right ovarian cyst, most likely functional/benign in nature.
[2017-10-18 11:36] LABS: Hematocrit 22.5 % (36.0-45.0)
[2017-10-18 15:27] VITALS: O2SAT 99
--- NOTE | 2017-10-18 15:56 | P.HP ---
Certification for Inpatient Patient admitted to: Inpatient With expected LOS: >2 Midnights Patient will require the following post-hospital care: None Practitioner: I am a practitioner with admitting privileges, knowledge of patient current condition, hospital course, and medical plan of care. Services: Services provided to patient in accordance with Admission requirements found in Title 42 Section 412.3 of the Code of Federal Regulations Patient History Date of Service: 10/18/17 Reason for admission: Shortness of breath; weakness; malaise; heavy vaginal bleeding History of Present Illness: Patient is a 22-year-old female who was admitted to the hospital with weakness and shortness of breath. Patient's Shortness of breath has progressively worsened. Patient has had regular periods which normally last 1 week. However, in June she had a miscarriage and since that time her periods have been lasting for 2-3 weeks. They stopped for about a week and Then she has another period. She normally goes through 4 pads a day. She thought that since her periods were not completely regular that there was nothing unusual about this. She came into the emergency room a week ago and was started on hormone therapy. This has helped somewhat. However, her respiratory status and weakness have been worsening. She has been having abdominal pain with pain from her epigastric region down to her suprapubic area. Her pain is associated with some rebound and guarding. She does not like for me to touch her abdomen on exam. Her anemia has progressed significantly over the last week. She also has iron deficiency anemia Which is normally associated with microcytic anemia. However her RDW is elevated which indicates that she may have a mixed microcytic and macrocytic picture however we would need to do a blood smear to evaluate this. patient could have an issue with absorption from her GI tract. She is taking iron supplements and using vitamin C to help with absorption. She is not on any B12 supplements. Patient has multiple issues going on with her anemia and with her degree of anemia and she will be admitted to the hospital for inpatient workup so we can further evaluate her and figure out exactly what is going on over the next day or 2. Allergies No Known Allergies Allergy (Verified 08/29/16 07:10) Home Medications: Ascorbic Acid/Ascorbate Sodium [Vit C-Eugenia Hips 500 mg Chew Tb] 1 tab PO DAILY 10/18/17 Cyanocobalamin [Vitamin B-12*] 1,000 mcg SL DAILY #30 tab 10/18/17 Ferrous Sulfate [Iron] 325 mg PO BID #60 tablet 10/18/17 Multivit-Min/Folic Acid/Biotin [Women Multivit W-Biotin Gummy] 1 tab PO DAILY Pantoprazole [Protonix Tab] 40 mg PO DAILY #30 tab 10/18/17 - Past Medical/Surgical History Diabetic: No -: anemia/iron deficiency -: C section -: hernia repair - Family History Father Family History: Reviewed- Non-Contributory - Social History Smoking Status: Never smoker Alcohol use: No CD- Drugs: No Caffeine use: Yes Place of Residence: Home Review of Systems 10-point ROS is otherwise unremarkable Physical Examination - Vital Signs Temperature: 98.4 F Blood Pressure: 112/59 Pulse: 93 Respirations: 20 Pulse Ox (%): 99 - Physical Exam General: Alert, In no apparent distress, Oriented x3 HEENT: Atraumatic, PERRLA, Mucous membr. moist/pink, EOMI, Sclerae nonicteric Neck: Supple, 2+ carotid pulse no bruit, No LAD, Without JVD or thyroid abnormality Respiratory: Clear to auscultation bilaterally, Normal air movement Cardiovascular: Regular rate/rhythm, Normal S1 S2, No murmurs Gastrointestinal: Normal bowel sounds, Soft and benign, Tenderness, Rebound, Guarding Musculoskeletal: No clubbing, No swelling, No tenderness Integumentary: No rashes Neurological: Normal gait, Normal speech, Normal strength at 5/5 x4 extr, Normal tone, Sensation intact, Cranial nerves 3-12 intact, Normal affect Lymphatics: No axilla or inguinal lymphadenopathy - Studies Laboratory Data (last 24 hrs) 10/18/17 01:47: Total Bilirubin 0.1 L, AST 9 L, ALT 11 L, Alkaline Phosphatase 66 10/18/17 01:47: PT 12.1, INR 1.03, APTT 26.4 10/18/17 01:47: Sodium 142, Potassium 3.5, BUN 8, Creatinine 0.60, Glucose 104 10/18/17 01:47: WBC 8.3, Hgb 4.7 L* D, Hct 14.7 L* D, Plt Count 280 D Assessment & Plan - Problems (Diagnosis) (1) Menorrhagia Current Visit: Yes Status: Acute (2) Hemorrhagic ovarian cyst Current Visit: Yes Status: Acute (3) Iron deficiency anemia Current Visit: Yes Status: Acute (4) B12 deficiency anemia Current Visit: Yes Status: Acute (5) Miscarriage Current Visit: Yes Status: Acute (6) Abdominal pain Current Visit: Yes Status: Acute - Plan plan: 1. transfuse 2-3 units of packed red blood cells. 2. abdominal or transvaginal ultrasound to further evaluate abdominal pain 3. start on B12 supplementation 4. monitor her hemorrhagic ovarian cyst to make sure she is not continuing to bleed as she does have significant abdominal tenderness 5. GI and DVT prophylaxis - Advance Directives Does patient have a Living Will: No Does patient have a Durable POA for Healthcare: No
[2017-10-18 16:46] VITALS: BP 132/70; TEMP 98.9
[2017-10-18 16:56] LABS: Hematocrit 24.4 % (36.0-45.0)
== END 2017-10-18 18:19 | disposition home or self-care (01) | DRG 812 ==
LOC: ER 01:02 → ERHOLD 04:25 → 2ND 05:29
PROVIDERS: ADMIT Hospitalist; ATTEND Family Medicine
PROC: 30233N1 Transfusion of Nonautologous Red Blood Cells into Peripheral Vein, Percutaneous Approach (ICD-10-PCS; principal; 2017-10-18)
DX: D50.0 Iron deficiency anemia secondary to blood loss (chronic) (principal); N92.0 Excessive and frequent menstruation with regular cycle; N83.201 Unspecified ovarian cyst, right side; D51.9 Vitamin B12 deficiency anemia, unspecified; K80.20 Calculus of gallbladder without cholecystitis without obstruction; K42.9 Umbilical hernia without obstruction or gangrene; K21.9 Gastro-esophageal reflux disease without esophagitis
CPT/HCPCS: 36415; 74177; 76830; 80048; 80076; 81003; 81015; 81025; 82607; 82728; 83540; 84145; 84466; 85014; 85018; 85025; 85044; 85610; 85730; 86850; 86900; 86901; 96360; 96361; 99285; J7030; P9016; Q9967

== ENCOUNTER 2018-02-19 09:49 | Emergency (ER) | payer SELFPAY ==
--- NOTE | 2018-02-19 11:19 | RAD REPORT ---
EXAM DESCRIPTION: RAD - Chest Pa And Lat (2 Views) - 02/19/2018 11:14 am CLINICAL HISTORY: shortness of breath Chest pain. COMPARISON: No comparisons FINDINGS: Bibasilar reticular opacities are present, greatest posteriorly most compatible with atypi cristiano infection/ pneumonitis. The heart is normal in size. No displaced fractures.
[2018-02-19] MEDS ORDERED: NA CHLORIDE 0.9% 1,000 ML ONE (11:36)
[2018-02-19 11:46] LABS: Urine Blood NEGATIVE (NEG); Urine Glucose NEGATIVE (NEG); Urine Protein NEGATIVE (NEG); Urine Specific Gravity 1.025 (1.005-1.030)
[2018-02-19] MEDS ORDERED: AZITHROMYCIN 250 MG TAB ONE (11:49)
[2018-02-19] MEDS ORDERED: CEFTRIAXONE/SWI 1gm 1 GM/10 ML SYR ONE (11:50)
[2018-02-19 11:51] LABS: RBC Red Blood Cell Count 5.65 M/uL (3.86-4.86)
[2018-02-19 11:52] LABS: Absolute Monocytes 0.7 K/uL (0.1-1.3); Absolute Neutrophil 6.4 K/uL (1.8-8.0); BUN Blood Urea Nitrogen 10 mg/dL (7-18); Basophils % 0.1 % (0-1.3); Bicarbonate 25 mmol/L (21-32); Eosinophils % 3.1 % (0-4.4); Glucose Level 87 mg/dL (74-106); Lymphocytes % 21.7 % (15.3-44.8); MCH 22.3 pg (27.0-35.0); MCV 69.1 fL (80-100); MPV 7.5 fL (7.6-11.3); Monocytes % 7.2 % (3.3-12.3); Potassium 3.7 mmol/L (3.5-5.1); Sodium Level 141 mmol/L (136-145)
[2018-02-19] MEDS ORDERED: METHYLPREDNISOLONE 125 MG INJ ONE (12:05)
[2018-02-19] MEDS ORDERED: FAMOTIDINE 20 MG/2 ML VIAL IV ONE (12:05)
[2018-02-19] MEDS ORDERED: hydrOXYzine HCl 50 MG/ML VIAL IM ONE (12:05)
[2018-02-19] MEDS ORDERED: LEVALBUTEROL 1.25 MG/3 ML NEB ONE (12:21)
[2018-02-19] MEDS ORDERED: IPRATROPIUM BROM 0.5MG/2.5ML ONE (12:21)
[2018-02-19 12:33] LABS: Anisocytosis 1+; Blood Morphology Comment NOTED (NOT SEEN); Hypochromasia 1+; Platelet Estimate ADEQ; Urine White Blood Cell Casts OK
--- NOTE | 2018-02-19 12:41 | ER ---
Nurse's Notes [facility] Name: Mana Duque Age: 22 yrs Sex: Female : 1995 Arrival Date: 02/19/2018 Time: 09:51 Bed 13 Private MD: Diagnosis: Pneumonia, unspecified organism;Infectious mononucleosis Presentation: 02/19 10:19 Presenting complaint: Patient states: "I can't take a deep breath without coughing, and aj1 it sounds like there's mucus but nothing is coming up. I've been running fever, it spikes up to 104 at night. When I cough it hurts where I have an umbilical hernia. I've had a headache, and I've been really tired." Reports symptoms have been going on since Saturday. Reports shortness of breath on activity. Breath sounds diminished at bilateral bases. Transition of care: patient was not received from another setting of care. Onset of symptoms was January 2018. Risk Assessment: Do you want to hurt yourself or someone else? Patient reports no desire to harm self or others. Initial Sepsis Screen: Does the patient meet any 2 criteria? RR > 20 per min. HR > 90 bpm. Yes Does the patient have a suspected source of infection? Yes: Productive cough/pneumonia. Care prior to arrival: None. 10:19 Method Of Arrival: Ambulatory aj1 10:19 Acuity: TING 3 aj1 Triage Assessment: 10:23 General: Appears uncomfortable, Behavior is calm, cooperative, appropriate for age. aj1 Pain: Denies pain. Neuro: Level of Consciousness is awake, alert, obeys commands. Cardiovascular: Patient's skin is warm and dry. Respiratory: Airway is patent Respiratory effort is even, unlabored, Respiratory pattern is regular, symmetrical, Breath sounds are diminished bilaterally. in left posterior lower lobe and right posterior lower lobe. Respiratory: Reports shortness of breath on exertion cough that is non-productive. Historical: - Allergies: 12:06 Rocephin; la1 - PMHx: 10:23 Anemia; umbilical hernia; gallstones; aj1 - Immunization history:: Adult Immunizations up to date. - Social history:: Smoking status: Patient/guardian denies using tobacco. - Ebola Screening: : No symptoms or risks identified at this time. Screenin:36 Abuse screen: Denies threats or abuse. Nutritional screening: No deficits noted. la1 Tuberculosis screening: No symptoms or risk factors identified. Fall Risk None identified. Assessment: 11:30 General: Appears in no apparent distress. Behavior is calm, cooperative. Pain: Denies la1 pain. Neuro: Level of Consciousness is awake, alert, obeys commands, Oriented to person, place, time, situation. Cardiovascular: Heart tones S1 S2 Capillary refill < 3 seconds. Respiratory: Airway is patent Trachea Respiratory effort is even, unlabored, Respiratory pattern is regular, symmetrical. GI: No signs and/or symptoms were reported involving the gastrointestinal system. : No signs and/or symptoms were reported regarding the genitourinary system. 12:10 Reassessment: Pt C/O itching and rash to face S/P rocephin administration. ERP la1 notified, medications given. Vital Signs: 10:23 BP 116 / 91; Pulse 122; Resp 22; Temp 98.4; Pulse Ox 98% on R/A; Weight 90.72 kg (R); aj1 Height 5 ft. 7 in. (170.18 cm) (R); Pain 0/10; 11:35 BP 117 / 70; Pulse 104; Resp 16; Temp 99.8(O); Pulse Ox 97% on R/A; la1 12:47 BP 117 / 74; Pulse 76; Resp 16; Temp 99.7; Pulse Ox 98% on R/A; la1 10:23 Body Mass Index 31.32 (90.72 kg, 170.18 cm) aj1 ED Course: 09:51 Patient arrived in ED. as 10:22 Triage completed. aj1 10:23 Arm band placed on Patient placed in waiting room, Patient notified of wait time. aj1 10:52 Mary Jaime FNP-C is PHCP. kb 10:52 Tre Guy MD is Attending Physician. kb 10:55 Urine collected: clean catch specimen, clear, grant colored, Amount Voided: 120mL. jp3 11:11 Cesar Ruiz, RN is Primary Nurse. la1 11:15 Chest Pa And Lat (2 Views) XRAY In Process Unspecified. EDMS 11:25 Initial lab(s) drawn, by me, sent to lab. Flu and/or RSV swab sent to lab. Inserted jp3 saline lock: 22 gauge in right antecubital area, using aseptic technique. Blood collected. 11:31 Bed in low position. Call light in reach. Side rails up X 1. Pulse ox on. NIBP on. jp3 11:31 Craven Screen Profile Sent. jp3 11:31 Basic Metabolic Panel Sent. jp3 11:31 CBC with Diff Sent. jp3 11:31 Flu Sent. jp3 11:32 Urine --Ancillary (enter results) Sent. jp3 11:32 Urine Dipstick--Ancillary (enter results) Sent. jp3 12:47 No provider procedures requiring assistance completed. IV discontinued, intact, la1 bleeding controlled, No redness/swelling at site. Pressure dressing applied. Administered Medications: 11:41 Drug: NS 0.9% 1000 ml Route: IV; Rate: 1000 ml; Site: right antecubital; la1 11:49 Follow up: IV Status: Completed infusion la1 11:48 Drug: Zithromax 500 mg Route: PO; la1 11:49 Follow up: Response: No adverse reaction la1 11:48 Drug: Rocephin - (cefTRIAXone) 1 grams Route: IVPB; Infused Over: 30 mins; Site: right la1 antecubital; 11:49 Follow up: IV Status: Completed infusion la1 12:08 Follow up: Response: Adverse reaction, Physician notified la1 12:07 Drug: Pepcid 20 mg Route: IVP; Site: right antecubital; la1 12:11 Follow up: Response: No adverse reaction la1 12:08 Drug: SOLU-Medrol 125 mg Route: IVP; Site: right antecubital; la1 12:11 Follow up: Response: No adverse reaction la1 12:08 Drug: hydrOXYzine 25 mg Route: PO; la1 12:11 Follow up: Response: No adverse reaction la1 12:23 Drug: Xopenex (3) 1.25 mg Route: Inhalation; la1 12:23 Drug: AtroVENT Aerosol 0.5 mg Route: Inhalation; la1 Outcome: 12:41 Discharge ordered by MD. forrester 12:47 Discharged to home ambulatory. la1 12:47 Condition: stable 12:47 Discharge instructions given to patient, Instructed on discharge instructions, follow up and referral plans. medication usage, Demonstrated understanding of instructions, follow-up care, medications, Prescriptions given X 2. 12:48 Patient left the ED. la1 Signatures: Dispatcher [employer] EDMS Mary Jaime, NATALIOC SENIOR ELECTRICAL DESIGN ENGINEER-Lesly Gomes RN RN aj1 Geovanna Day Lee, RN RN la1 Christopher Oneill jp3 Corrections: (The following items were deleted from the chart) 12:06 10:23 Allergies: No Known Allergies; lynn vaughn
--- NOTE | 2018-02-19 12:42 | EDPHYS ---
Physician Documentation [facility] Name: Mana Duque Age: 22 yrs Sex: Female : 1995 Arrival Date: 02/19/2018 Time: 09:51 Bed 13 Private MD: ED Physician Tre Guy HPI: 02/19 12:17 This 22 yrs old Female presents to ER via Ambulatory with complaints of Fever, kb Cough. 12:17 The patient or guardian reports cough, that is intermittent, described as moderate, kb with no sputum. Onset: The symptoms/episode began/occurred 4 day(s) ago. Severity of symptoms: At their worst the symptoms were moderate, in the emergency department the symptoms are unchanged. Modifying factors: The symptoms are alleviated by nothing, the symptoms are aggravated by nothing. Associated signs and symptoms: Pertinent positives: fever, Pertinent negatives: chest pain, diarrhea, ear ache, nausea, rhinorrhea, sore throat, vomiting. The patient has not experienced similar symptoms in the past. The patient has not recently seen a physician. Historical: - Allergies: 12:06 Rocephin; la1 - PMHx: 10:23 Anemia; umbilical hernia; gallstones; aj1 - Immunization history:: Adult Immunizations up to date. - Social history:: Smoking status: Patient/guardian denies using tobacco. - Ebola Screening: : No symptoms or risks identified at this time. ROS: 12:15 ENT: Negative for injury, pain, and discharge, Cardiovascular: Negative for chest pain, kb palpitations, and edema, Abdomen/GI: Negative for abdominal pain, nausea, vomiting, diarrhea, and constipation, Back: Negative for injury and pain, : Negative for injury, bleeding, discharge, and swelling, MS/Extremity: Negative for injury and deformity, Skin: Negative for injury, rash, and discoloration. 12:15 Constitutional: Positive for fatigue, fever, malaise, poor PO intake, Negative for body aches, chills, weight loss. 12:15 Respiratory: Positive for cough, Negative for dyspnea on exertion, hemoptysis, orthopnea, pleurisy, shortness of breath, sputum production, wheezing. 12:15 Neuro: Positive for headache. Exam: 12:15 Constitutional: This is a well developed, well nourished patient who is awake, alert, kb and in no acute distress. Head/Face: Normocephalic, atraumatic. Chest/axilla: Normal chest wall appearance and motion. Nontender with no deformity. No lesions are appreciated. Cardiovascular: Regular rate and rhythm with a normal S1 and S2. No gallops, murmurs, or rubs. Normal PMI, no JVD. No pulse deficits. Respiratory: Lungs have equal breath sounds bilaterally, clear to auscultation and percussion. No rales, rhonchi or wheezes noted. No increased work of breathing, no retractions or nasal flaring. Abdomen/GI: Soft, non-tender, with normal bowel sounds. No distension or tympany. No guarding or rebound. No evidence of tenderness throughout. Skin: Warm, dry with normal turgor. Normal color with no rashes, no lesions, and no evidence of cellulitis. MS/ Extremity: Pulses equal, no cyanosis. Neurovascular intact. Full, normal range of motion. Neuro: Awake and alert, GCS 15, oriented to person, place, time, and situation. Cranial nerves II-XII grossly intact. Motor strength 5/5 in all extremities. Sensory grossly intact. Cerebellar exam normal. Normal gait. Vital Signs: 10:23 BP 116 / 91; Pulse 122; Resp 22; Temp 98.4; Pulse Ox 98% on R/A; Weight 90.72 kg (R); aj1 Height 5 ft. 7 in. (170.18 cm) (R); Pain 0/10; 11:35 BP 117 / 70; Pulse 104; Resp 16; Temp 99.8(O); Pulse Ox 97% on R/A; la1 12:47 BP 117 / 74; Pulse 76; Resp 16; Temp 99.7; Pulse Ox 98% on R/A; la1 10:23 Body Mass Index 31.32 (90.72 kg, 170.18 cm) aj1 MDM: 10:52 Patient medically screened. kb 12:17 Data reviewed: vital signs, nurses notes. Data interpreted: Pulse oximetry: on room air kb is 97 %. Interpretation: normal. Counseling: I had a detailed discussion with the patient and/or guardian regarding: the historical points, exam findings, and any diagnostic results supporting the discharge/admit diagnosis, lab results, radiology results, the need for outpatient follow up, a family practitioner, to return to the emergency department if symptoms worsen or persist or if there are any questions or concerns that arise at home. 12:21 ED course: pt had allergic reaction (hives) after rocephin. Rocephin stopped. No resp kb distress noted. . 02/19 11:04 Order name: Flu; Complete Time: 12:38 kb 02/19 11:04 Order name: CBC with Diff; Complete Time: 12:35 kb 02/19 11:04 Order name: Basic Metabolic Panel; Complete Time: 11:54 kb 02/19 11:04 Order name: Gos[place] Screen Profile; Complete Time: 12:07 kb 02/19 11:17 Order name: Urine Dipstick--Ancillary (enter results); Complete Time: 11:54 bd 02/19 11:17 Order name: Urine --Ancillary (enter results); Complete Time: 11:54 bd 02/19 10:24 Order name: Chest Pa And Lat (2 Views) XRAY; Complete Time: 11:40 aj1 02/19 12:04 Order name: CBC Smear Scan; Complete Time: 12:35 EDMS 02/19 11:04 Order name: IV Start; Complete Time: 11:31 kb Administered Medications: 11:41 Drug: NS 0.9% 1000 ml Route: IV; Rate: 1000 ml; Site: right antecubital; la1 11:49 Follow up: IV Status: Completed infusion la1 11:48 Drug: Zithromax 500 mg Route: PO; la1 11:49 Follow up: Response: No adverse reaction la1 11:48 Drug: Rocephin - (cefTRIAXone) 1 grams Route: IVPB; Infused Over: 30 mins; Site: right la1 antecubital; 11:49 Follow up: IV Status: Completed infusion la1 12:08 Follow up: Response: Adverse reaction, Physician notified la1 12:07 Drug: Pepcid 20 mg Route: IVP; Site: right antecubital; la1 12:11 Follow up: Response: No adverse reaction la1 12:08 Drug: SOLU-Medrol 125 mg Route: IVP; Site: right antecubital; la1 12:11 Follow up: Response: No adverse reaction la1 12:08 Drug: hydrOXYzine 25 mg Route: PO; la1 12:11 Follow up: Response: No adverse reaction la1 12:23 Drug: Xopenex (3) 1.25 mg Route: Inhalation; la1 12:23 Drug: AtroVENT Aerosol 0.5 mg Route: Inhalation; la1 Disposition: 02/19/18 12:41 Discharged to Home. Impression: Pneumonia, unspecified organism, Infectious mononucleosis. - Condition is Stable. - Discharge Instructions: Community-Acquired Pneumonia, Adult, [id number], Infectious Mononucleosis, [id number]. - Prescriptions for Albuterol Sulfate 90 mcg/actuation - inhale 1-2 puff by INHALATION route every 4-6 hours; 1 Inhaler. Zithromax 500 mg Oral Tablet - take 1 tablet by ORAL route once daily for 5 days; 5 tablet. - Medication Reconciliation Form, Thank You Letter, Antibiotic Education, Prescription Opioid Use form. - Follow up: Emergency Department; When: As needed; Reason: Worsening of condition. Follow up: Private Physician; When: 2 - 3 days; Reason: Recheck today's complaints, Continuance of care, Re-evaluation by your physician. Addendum: 03/01/2018 08:03 Co-signature as Attending Physician, Tre Guy MD I agree with the assessment and k dr plan of care. Signatures: Dispatcher [employer] EDMS Mary Jaime, LAMINATOR HAND-C LAMINATOR HAND-Ckb Lesly mSith, MARKOS RN aj1 Tre Guy MD MD [facility] Cesar Ruiz RN RN la1 Corrections: (The following items were deleted from the chart) 02/19 12:06 10:23 Allergies: No Known Allergies; aj1 la 12:48 12:41 02/19/2018 12:41 Discharged to Home. Impression: Pneumonia, unspecified organism; la1 Infectious mononucleosis. Condition is Stable. Discharge Instructions: Community-Acquired Pneumonia, Adult, [id number], Infectious Mononucleosis, [id number]. Prescriptions for Albuterol Sulfate 90 mcg/actuation - inhale 1-2 puff by INHALATION route every 4-6 hours; 1 Inhaler, Zithromax 500 mg Oral Tablet - take 1 tablet by ORAL route once daily for 5 days; 5 tablet. and Forms are Medication Reconciliation Form, Thank You Letter, Antibiotic Education, Prescription Opioid Use. Follow up: Emergency Department; When: As needed; Reason: Worsening of condition. Follow up: Private Physician; When: 2 - 3 days; Reason: Recheck today's complaints, Continuance of care, Re-evaluation by your physician. kb
[2018-02-19 12:55] VITALS: BP 117/74; TEMP 99.7; O2SAT 98
== END 2018-02-19 12:48 | disposition home or self-care (01) ==
LOC: ER 09:49
DX: J18.9 Pneumonia, unspecified organism (principal); B27.90 Infectious mononucleosis, unspecified without complication; Z88.1 Allergy status to other antibiotic agents
CPT/HCPCS: 36415; 71046; 80048; 81003; 81025; 85025; 86308; 87804; 96374; 96375; 99284; J0696; J2930; J3410; J7030

== ENCOUNTER 2022-08-25 12:13 | Emergency (ER) | payer OTHER ==
--- OUTSIDE RECORDS SUMMARY | 2022-08-25 12:19 | XMS REPORT | Continuity of Care Document ---
:[address] [facility] t Address [address] [place] [address] [place] [id number] Care Team Providers Name Role Phone Uriah Palacios NP Primary Care Physician URIAH PALACIOS Attending Clinician Unavailable URIAH PALACIOS Attending Clinician Unavailable Candice Grider MA Attending Clinician Unavailable UNKNOWN, ATTENDING Attending Clinician Unavailable Doctor Unassigned, [place] Attending Clinician Unavailable CORY NIETO Attending Clinician Unavailable 2, [facility] Attending Clinician Unavailable STEVE BRADSHAW Attending Clinician Unavailable STEVE BRADSHAW Attending Clinician Unavailable Martina Madrid MD Attending Clinician MARTINA MADRID Attending Clinician Unavailable Only, Adc Test Attending Clinician Unavailable Marquise Koehler MD Attending Clinician Dino Agrawal MD Attending Clinician Tiffanie James Attending Clinician DINO AGRAWAL Attending Clinician Unavailable Lab, Ang - Db Attending Clinician Unavailable Ultrasound, Ang-Mfm Attending Clinician Unavailable Denita Lan MD Attending Clinician DENITA LAN Attending Clinician Unavailable Yvonne Johnston RN Attending Clinician Unavailable 3, [facility] Usg Room Attending Clinician Unavailable Vani Garcia DO Attending Clinician Only, Ang Db Test Attending Clinician Unavailable MARQUISE KOEHLER Admitting Clinician Unavailable MARTINA MADRID Admitting Clinician Unavailable Martina Madrid MD Admitting Clinician Marquise Koehler MD Admitting Clinician Payers Payer Name Policy Type Policy Number Effective Date Expiration Date [facility] [id number] 2021 CHOICE MEDICAID 00:00:00 Problems Condition Condition Condition Status Onset Resolution Last Treating Co mments Source Name Details Category Date Date Treatment Clinician Date Disease Active 2021-04 U nivers depression depression 1-03 it y of 00:00: [place] [facility] Positive Positive Disease Active 2021-04 Unive rs depression depression 1-03 it y of screening screening 00:00: [facility] s [facility] BMI BMI Disease Active 2021-04 Univers 36.0-36.9, 36.0-36.9, 1-03 it y of adult adult 00:00: [place] [facility] Anemia, Anemia, Disease Active Univers unspecifie unspecifie 8-30 it y of d type d type 00:00: Medical Branch History of History of Disease Active U nivers 6-20 ity of delivery delivery 00:00: [place] [facility] Obesity in Obesity in Disease Active 2020-04 U nivers 2-14 ity of 00:00: [place] [facility] History of History of Disease Active 2020-04 U nivers gestationa gestationa 2-14 it y of l diabetes l diabetes 00:00: [place] [facility] Herpes, Herpes, Disease Active 2020-04 Univers vulvar vulvar 2-14 ity of 00:00: [place] [facility] Allergies, Adverse Reactions, Alerts Allergy Allergy Status Severity Reaction(s) Onset Inactive Treating Comm ents Source Name Type Date Date Clinician Penicill Propensi Active Swelling 2020-04 Univ ers ins ty to 1-29 ity of adverse 00:00: [place] reaction 00 Medical s Branch PENICILL Drug Active Hives 2020-04 Univers INS Class 1-29 ity of 00:00: [place] 00 Medical Branch Social History Social Habit Start Date Stop Date Quantity Comments Source Exposure to 2022-05-28 2022-06-07 Not sure University of SARS-CoV-2 00:00:00 10:05:00 [place] [facility] (event) Branch Alcohol intake 2022-04-30 2022-04-30 Ex-drinker [facility] 00:00:00 00:00:00 (finding) [facility] Tobacco use and 2021-12-12 2021-12-12 Smokeless tobacco Un iversity of exposure 00:00:00 00:00:00 non-user [facility] Sex Ass[birth year] At [birth year] Universit y of 00:00:00 00:00:00 [facility] Smoking Status Start Date Stop Date Source Never smoked tobacco [facility] Medications Ordered Filled Start Stop Current Ordering Indication Dosage Frequency Signature Comments Components Source Medication Medication Date Date Medication? Clinician (SIG) Name Name semaglutide 2022- Yes [id number] .5mg inject 0.5 Univers (OZEMPIC) 3- 05-31 mg under ity o f 0.25 mg [place] 00:[place] 0.[place] mg(2 00 :00 weekly for Medic al mg/1.5 mL) 90 days. [facility] PnIj semaglutide 2022- Yes [id number] .5mg inject 0.5 Univers (OZEMPIC) 3- 05-31 mg under ity o f 0.25 mg [place] 00:00: 04:59 [place] 0.[place] mg(2 00 :00 weekly for Medic al mg/1.5 mL) 90 days. [facility] Pn[facility]j semaglutide 2022- Yes [id number] .5mg inject 0.5 Univers (OZEMPIC) 3- 05-31 mg under ity o f 0.25 mg or 00:00: 04:59 [place] 0.5 mg(2 00 :00 weekly for Medic al mg/1.5 mL) 90 days. [facility] PnIj semaglutide 2022- Yes [id number] .5mg inject 0.5 Univers (OZEMPIC) 3- 05-31 mg under ity o f 0.25 mg or 00:00: 04:59 [place] 0.5 mg(2 00 :00 weekly for Medic al mg/1.5 mL) 90 days. [facility] PnIj semaglutide 2022- Yes [id number] .5mg inject 0.5 Univers (OZEMPIC) 06-27 05-31 mg under ity o f 0.25 mg or 00:00: 04:59 [place] 0.5 mg(2 00 :00 weekly for Medic al mg/1.5 mL) 90 days. [facility] PnIj semaglutide 2022- Yes [id number] .5mg inject 0.5 Univers (OZEMPIC) 06-27 05-31 mg under ity o f 0.25 mg or 00:00: 04:59 [place] 0.5 mg(2 00 :00 weekly for Medic al mg/1.5 mL[facility]ag[facility] [id number] .5mg inject 0.5 Univers (OZEMPIC) 06-27 05-31 mg under ity o f 0.25 mg or 00:00: 04:59 [place] 0.5 mg(2 00 :00 weekly for Medic al mg/1.5 mL) 90 days. [facility] semaglutide 2022- Yes [id number] .25mg inject Univers (OZEMPIC) 05-29 0.25 mg ity of 0.25 mg or 00:00: 05:59 under the [place] 0.5 mg(2 00 :00 skin Medical mg/1.5 mL) weekly for Bra nch PnIj 30 days. semaglutide 2022- Yes [id number] .25mg inject Univers (OZEMPIC) 05-2903 0.25 mg ity of 0.25 mg or 00:00: 05:59 under the [place] 0.5 mg(2 00 :00 skin Medical mg/1.5 mL) weekly for Bra nch PnIj 30 days. semaglutide 2022- Yes [id number] .25mg inject Univers (OZEMPIC) 05-2903 0.25 mg ity of 0.25 mg or 00:00: 05:59 under the [place] 0.5 mg(2 00 :00 skin Medical mg/1.5 mL) weekly for Bra nch PnIj 30 days. semaglutide 2022- Yes [id number] .25mg inject Univers (OZEMPIC) 05-2903 0.25 mg ity of 0.25 mg or 00:00: 05:59 under the [place] 0.5 mg(2 00 :00 skin Medical mg/1.5 mL) weekly for Bra nch PnIj 30 days. semaglutide 2022- Yes [id number] .25mg inject Univers (OZEMPIC) 05-2903 0.25 mg ity of 0.25 mg or 00:00: 05:59 under the [place] 0.5 mg(2 00 :00 skin Medical mg/1.5 mL) weekly for Bra nch PnIj 30 days. semaglutide 2022- Yes [id number] .25mg inject Univers (OZEMPIC) 05-2903 0.25 mg ity of 0.25 mg or 00:00: 05:59 under the [place] 0.5 mg(2 00 :00 skin Medical mg/1.5 mL) weekly for Bra nch PnIj 30 days. Yes Take by [facility] vit/iron 1-02 mouth. ity of fum/folic 10:27: [facility] 09 Medical ( 1 Branch + 1 ORAL) Yes Take by Univer s vit/iron 1-02 mouth. ity of fum/folic 10:27: [facility] 09 Medical ( 1 Branch + 1 ORAL) Yes Take by Univer s vit/iron 1-02 mouth. ity of fum/folic 10:27: [facility] 09 Medical ( 1 Branch + 1 ORAL) Yes Take by Univer s vit/iron 1-02 mouth. ity of fum/folic 10:27: [facility] 09 Medical ( 1 Branch + 1 ORAL) Yes Take by Univer s vit/iron 1-02 mouth. ity of fum/folic 10:27: [facility] 09 Medical ( 1 Branch + 1 ORAL) Yes Take by Univer s vit/iron 1-02 mouth. ity of fum/folic 10:27: [place] 09 Medical ( 1 Branch + 1 ORAL) Yes Take by [facility] vit/iron 1-02 mouth. ity of fum/folic 10:27: [facility] 09 Medical ( 1 Branch + 1 ORAL) Yes Take by [facility] s vit/iron 1-02 mouth. ity of fum/folic 10:27: [facility] 09 Medical ( 1 Branch + 1 ORAL) Yes Take by [facility] s vit/iron 1-02 mouth. ity of fum/folic 10:27: [facility] 09 Medical ( 1 Branch + 1 ORAL) Yes Take by [facility] s vit/iron 1-02 mouth. ity of fum/folic 10:27: [facility] 09 Medical ( 1 Branch + 1 ORAL) metformin 2021-04 Yes [id number] 1500mg Take 3 Univers ER 500 mg 2-16 tablets by ity of 24 hr 00:00: mouth at [place] tablet 00 bedtime. Medical Titrate up Branch to 1500mg at night. metformin 2021-04 Yes [id number] 1500mg Take 3 Univers ER 500 mg 2-16 tablets by ity of 24 hr 00:00: mouth at [place] tablet 00 bedtime. Medical Titrate up Branch to 1500mg at night. metformin 2021-04 Yes [id number] 1500mg Take 3 Univers ER 500 mg 2-16 tablets by ity of 24 hr 00:00: mouth at [place] tablet 00 bedtime. Medical Titrate up Branch to 1500mg at night. metformin 2021-04 Yes [id number] 1500mg Take 3 Univers ER 500 mg 2-16 tablets by ity of 24 hr 00:00: mouth at [place] tablet 00 bedtime. Medical Titrate up Branch to 1500mg at night. metformin 2021-04 Yes [id number] 1500mg Take 3 Univers ER 500 mg 2-16 tablets by ity of 24 hr 00:00: mouth at [place] tablet 00 bedtime. Medical Titrate up Branch to 1500mg at night. metformin 2021-04 Yes [id number] 1500mg Take 3 Univers ER 500 mg 2-16 tablets by ity of 24 hr 00:00: mouth at [place] tablet 00 bedtime. Medical Titrate up Branch to 1500mg at night. metformin 2021-04 Yes [id number] 1500mg Take 3 Univers ER 500 mg 2-16 tablets by ity of 24 hr 00:00: mouth at [place] tablet 00 bedtime. Medical Titrate up Branch to 1500mg at night. metformin 2021-04 Yes [id number] 1500mg Take 3 Univers ER 500 mg 2-16 tablets by ity of 24 hr 00:00: mouth at [place] tablet 00 bedtime. Medical Titrate up Branch to 1500mg at night. metformin 2021-04 Yes [id number] 1500mg Take 3 Univers ER 500 mg 2-16 tablets by ity of 24 hr 00:00: mouth at [place] tablet 00 bedtime. Medical Titrate up Branch to 1500mg at night. metformin 2021-04 Yes [id number] 1500mg Take 3 Univers ER 500 mg 2-16 tablets by ity of 24 hr 00:00: mouth at [place] tablet 00 bedtime. Medical Titrate up Branch to 1500mg at night. metformin 2021-04 Yes [id number] 1500mg Take 3 Univers ER 500 mg 2-16 tablets by ity of 24 hr 00:00: mouth at [place] tablet 00 bedtime. Medical Titrate up Branch to 1500mg at night. metformin 2021-04 Yes [id number] 1500mg Take 3 Univers ER 500 mg 2-16 tablets by ity of 24 hr 00:00: mouth at [place] tablet 00 bedtime. Medical Titrate up Branch to 1500mg at night. metformin 2021-04 Yes [id number] 1500mg Take 3 Univers ER 500 mg 2-16 tablets by ity of 24 hr 00:00: mouth at [place] tablet 00 bedtime. Medical Titrate up Branch to 1500mg at night. levonorgest 2021- No [id number] 1{devic Univers reL 12-26 e} ity of (KYLEENA) 20:00: 19:17 [place] IUD 1 00 :00 [employer] Branch levonorgest 2021- No [id number] 1{devic 1 Device, Univers reL 12-26 e} Intrauteri ity of (KYLEENA) 20:00: 19:17 [place], ONCE, [place] I[place] 1 00 :00 1 dose, On [employer]st Tue Branch 12/26/21 at 1500, Routine metformin Yes [id number] 1500mg Take 3 Univers ER 500 mg 8-16 tablets by ity of 24 hr 00:00: mouth at [place] tablet 00 bedtime. Medical Titrate up Branch to 1500mg at night. metformin 2021-0 Yes [id number] 1500mg Take 3 Univers ER 500 mg 8-16 tablets by ity of 24 hr 00:00: mouth at [place] tablet 00 bedtime. Medical Titrate up Branch to 1500mg at night. metformin 2021-0 Yes [id number] 1500mg Take 3 Univers ER 500 mg 8-16 tablets by ity of 24 hr 00:00: mouth at [place] tablet 00 bedtime. Medical Titrate up Branch to 1500mg at night. metformin 2021-0 Yes [id number] 1500mg Take 3 Univers ER 500 mg 8-16 tablets by ity of 24 hr 00:00: mouth at [place] tablet 00 bedtime. Medical Titrate up Branch to 1500mg at night. metformin 2021-0 Yes [id number] 1500mg Take 3 Univers ER 500 mg 8-16 tablets by ity of 24 hr 00:00: mouth at [place] tablet 00 bedtime. Medical Titrate up Branch to 1500mg at night. metformin 2021-0 2022- No [id number] 1500mg Take 3 Univers ER 500 mg 8-16 12-16 tablets by ity of 24 hr 00:00: 00:00 mouth at [place] tablet 00 :00 bedtime. Medical Titrate up Branch to 1500mg at night. metformin 2021-0 2022- No [id number] 1500mg Take 3 Univers ER 500 mg 8-16 12-16 tablets by ity of 24 hr 00:00: 00:00 mouth at [place] tablet 00 :00 bedtime. Medical Titrate up Branch to 1500mg at night. Yes Take by Univer s vit/iron 6-22 mouth. ity of fum/folic 10:29: [place] [address] Medical ( 1 Branch + 1 ORAL) Yes Take by Univer s vit/iron 6-22 mouth. ity of fum/folic 10:29: [place] [address] Medical ( 1 Branch + 1 ORAL) 0 Yes Take by Univer s vit/iron 6-22 mouth. ity of fum/folic 10:29: [place] [address] Medical ( 1 Branch + 1 ORAL) Yes Take by Univer s vit/iron 6-22 mouth. ity of fum/folic 10:29: [place] [address] Medical ( 1 Branch + 1 ORAL) Yes Take by Univer s vit/iron 6-22 mouth. ity of fum/folic 10:29: [place] [address] Medical ( 1 Branch + 1 ORAL) Yes Take by Univer s vit/iron 6-22 mouth. ity of fum/folic 10:29: [place] [address] Medical ( 1 Branch + 1 ORAL) Yes Take by Univer s vit/iron 6-22 mouth. ity of fum/folic 10:29: [place] [address] Medical ( 1 Branch + 1 ORAL) Yes Take by Univer s vit/iron 6-22 mouth. ity of fum/folic 10:29: [place] [address] Medical ( 1 Branch + 1 ORAL) ferrous Yes [id number] 325mg Take 1 Un eliseo sulfate 3-03 tablet by ity of (IRON, 00:00: mouth [place] FERROUS 00 daily. Medical SULFATE,) Branch 325 mg (65 mg iron) tablet ferrous Yes [id number] 325mg Take 1 Un eliseo sulfate 3-03 tablet by ity of (IRON, 00:00: mouth [place] FERROUS 00 daily. Medical SULFATE,) Branch 325 mg (65 mg iron) tablet ferrous 0 Yes [id number] 325mg Take 1 Un eliseo sulfate 3-03 tablet by ity of (IRON, 00:00: mouth [place] FERROUS 00 daily. Medical SULFATE,) Branch 325 mg (65 mg iron) tablet ferrous 0 Yes [id number] 325mg Take 1 Un eliseo sulfate 3-03 tablet by ity of (IRON, 00:00: mouth [place] FERROUS 00 daily. Medical SULFATE,) Branch 325 mg (65 mg iron) tablet ferrous 0 Yes [id number] 325mg Take 1 Un eliseo sulfate 3-03 tablet by ity of (IRON, 00:00: mouth [place] FERROUS 00 daily. Medical SULFATE,) Branch 325 mg (65 mg iron) tablet ferrous 0 Yes [id number] 325mg Take 1 Un eliseo sulfate 3-03 tablet by ity of (IRON, 00:00: mouth [place] FERROUS 00 daily. Medical SULFATE,) Branch 325 mg (65 mg iron) tablet ferrous 0 Yes [id number] 325mg Take 1 Un eliseo sulfate 3-03 tablet by ity of (IRON, 00:00: mouth [place] FERROUS 00 daily. Medical SULFATE,) Branch 325 mg (65 mg iron) tablet ferrous 0 Yes [id number] 325mg Take 1 Un eliseo sulfate 3-03 tablet by ity of (IRON, 00:00: mouth [place] FERROUS 00 daily. Medical SULFATE,) Branch 325 mg (65 mg iron) tablet ferrous 0 Yes [id number] 325mg Take 1 Un eliseo sulfate 3-03 tablet by ity of (IRON, 00:00: mouth [place] FERROUS 00 daily. Medical SULFATE,) Branch 325 mg (65 mg iron) tablet ferrous 0 Yes [id number] 325mg Take 1 Un eliseo sulfate 3-03 tablet by ity of (IRON, 00:00: mouth [place] FERROUS 00 daily. Medical SULFATE,) Branch 325 mg (65 mg iron) tablet ferrous Yes [id number] 325mg Take 1 Un eliseo sulfate 3-03 tablet by ity of (IRON, 00:00: mouth [place] FERROUS 00 daily. Medical SULFATE,) Branch 325 mg (65 mg iron) tablet ferrous Yes [id number] 325mg Take 1 Un eliseo sulfate 3-03 tablet by ity of (IRON, 00:00: mouth [place] FERROUS 00 daily. Medical SULFATE,) Branch 325 mg (65 mg iron) tablet ferrous 0 Yes [id number] 325mg Take 1 Un eliseo sulfate 3-03 tablet by ity of (IRON, 00:00: mouth [place] FERROUS 00 daily. Medical SULFATE,) Branch 325 mg (65 mg iron) tablet ferrous 0 Yes [id number] 325mg Take 1 Un eliseo sulfate 3-03 tablet by ity of (IRON, 00:00: mouth [place] FERROUS 00 daily. Medical SULFATE,) Branch 325 mg (65 mg iron) tablet ferrous 0 Yes [id number] 325mg Take 1 Un eliseo sulfate 3-03 tablet by ity of (IRON, 00:00: mouth [place] FERROUS 00 daily. Medical SULFATE,) Branch 325 mg (65 mg iron) tablet ferrous 0 Yes [id number] 325mg Take 1 Un eliseo sulfate 3-03 tablet by ity of (IRON, 00:00: mouth [place] FERROUS 00 daily. Medical SULFATE,) Branch 325 mg (65 mg iron) tablet ferrous 0 Yes [id number] 325mg Take 1 Un eliseo sulfate 3-03 tablet by ity of (IRON, 00:00: mouth [place] FERROUS 00 daily. Medical SULFATE,) Branch 325 mg (65 mg iron) tablet ferrous Yes [id number] 325mg Take 1 Un eliseo sulfate 3-03 tablet by ity of (IRON, 00:00: mouth [place] FERROUS 00 daily. Medical SULFATE,) Branch 325 mg (65 mg iron) tablet Immunizations Ordered Filled Immunization Date Status Comments [facility] e Immunization Name Name [facility] 2021-08-29 Completed University of 00:00:00 [place] [facility] TDAP 2021-08-29 Completed University of 00:00:00 [place] [facility] TDAP 2021-08-29 Completed University of 00:00:00 [facility] TDAP 2021-08-29 Completed University of 00:00:00 [facility] TDAP 2021-08-29 Completed University of 00:00:00 [facility] TDAP 2021-08-29 Completed University of 00:00:00 [facility] TDAP 2021-08-29 Completed University of 00:00:00 [facility] TDAP 2021-08-29 Completed University of 00:00:00 [facility] TDAP 2021-08-29 Completed University of 00:00:00 [facility] TDAP 2021-08-29 Completed University of 00:00:00 [facility] TDAP 2021-08-29 Completed University of 00:00:00 [facility] TDAP 2021-08-29 Completed University of 00:00:00 [facility] TDAP 2021-08-29 Completed University of 00:00:00 [facility] TDAP 2021-08-29 Completed University of 00:00:00 [facility] TDAP 2021-08-29 Completed University of 00:00:00 [facility] TDAP 2021-08-29 Completed University of 00:00:00 [facility] TDAP 2021-08-29 Completed University of 00:00:00 [facility] TDAP 2021-08-29 Completed University of 00:00:00 [facility] Influenza Virus 2021-03-27 Completed Universit y of Vaccine Quad .5 mL 00:00:00 [facility] IM 6+ MO Branch Influenza Virus 2021-03-27 Completed Universit y of Vaccine Quad .5 mL 00:00:00 [place] [facility] IM 6+ MO Branch Influenza Virus 2021-03-27 Completed Universit y of Vaccine Quad .5 mL 00:00:00 [place] [facility] IM 6+ MO Branch Influenza Virus 2021-03-27 Completed Universit y of Vaccine Quad .5 mL 00:00:00 [place] [facility] IM 6+ MO Branch Influenza Virus 2021-03-27 Completed Universit y of Vaccine Quad .5 mL 00:00:00 [place] [facility] IM 6+ MO Branch Influenza Virus 2021-03-27 Completed Universit y of Vaccine Quad .5 mL 00:00:00 [place] [facility] IM 6+ MO Branch Influenza Virus 2021-03-27 Completed Universit y of Vaccine Quad .5 mL 00:00:00 [place] [facility] IM 6+ MO Branch Influenza Virus 2021-03-27 Completed Universit y of Vaccine Quad .5 mL 00:00:00 [place] [facility] IM 6+ MO Branch Influenza Virus 2021-03-27 Completed Universit y of Vaccine Quad .5 mL 00:00:00 [place] [facility] IM 6+ MO Branch Influenza Virus 2021-03-27 Completed Universit y of Vaccine Quad .5 mL 00:00:00 [place] [facility] IM 6+ MO Branch Influenza Virus 2021-03-27 Completed Universit y of Vaccine Quad .5 mL 00:00:00 [place] [facility] IM 6+ MO Branch Influenza Virus 2021-03-27 Completed Universit y of Vaccine Quad .5 mL 00:00:00 [place] [facility] IM 6+ MO Branch Influenza Virus 2021-03-27 Completed Universit y of Vaccine Quad .5 mL 00:00:00 [place] [facility] IM 6+ MO Branch Influenza Virus 2021-03-27 Completed Universit y of Vaccine Quad .5 mL 00:00:00 [place] [facility] IM 6+ MO Branch Influenza Virus 2021-03-27 Completed Universit y of Vaccine Quad .5 mL 00:00:00 [place] [facility] IM 6+ MO Branch Influenza Virus 2021-03-27 Completed Universit y of Vaccine Quad .5 mL 00:00:00 [place] [facility] IM 6+ MO Branch Influenza Virus 2021-03-27 Completed Universit y of Vaccine Quad .5 mL 00:00:00 [place] [facility] IM 6+ MO Branch Influenza Virus 2021-03-27 Completed Universit y of Vaccine Quad .5 mL 00:00:00 [place] [facility] IM 6+ MO Branch SARS-COV-2 COVID-19 2021-01-06 Completed Unive rsity of MODERNA VACCINE 00:00:00 [place] Med ical Branch SARS-COV-2 COVID-19 2021-01-06 Completed Unive rsity of MODERNA 12+ YRS 00:00:00 [place] [facility] ical VACCINE Branch SARS-COV-2 COVID-19 2021-01-06 Completed Unive rsity of MODERNA 12+ YRS 00:00:00 [place] [facility] ical VACCINE Branch SARS-COV-2 COVID-19 2021-01-06 Completed Unive rsity of MODERNA 12+ YRS 00:00:00 [place] [facility] ical VACCINE Branch SARS-COV-2 COVID-19 2021-01-06 Completed Unive rsity of MODERNA 12+ YRS 00:00:00 [place] [facility] ical VACCINE Branch SARS-COV-2 COVID-19 2021-01-06 Completed Unive rsity of MODERNA 12+ YRS 00:00:00 [place] Med ical VACCINE Branch SARS-COV-2 COVID-19 2021-01-06 Completed Unive rsity of MODERNA 12+ YRS 00:00:00 [place] [facility] ical VACCINE Branch SARS-COV-2 COVID-19 2021-01-06 Completed Unive rsity of MODERNA 12+ YRS 00:00:00 [place] [facility] ical VACCINE Branch SARS-COV-2 COVID-19 2021-01-06 Completed Unive rsity of MODERNA 12+ YRS 00:00:00 [place] [facility] ical VACCINE Branch SARS-COV-2 COVID-19 2021-01-06 Completed Unive rsity of MODERNA 12+ YRS 00:00:00 [place] [facility] ical VACCINE Branch SARS-COV-2 COVID-19 2021-01-06 Completed Unive rsity of MODERNA 12+ YRS 00:00:00 [place] [facility] ical VACCINE Branch SARS-COV-2 COVID-19 2021-01-06 Completed Unive rsity of MODERNA 12+ YRS 00:00:00 [place] [facility] ical VACCINE Branch SARS-COV-2 COVID-19 2021-01-06 Completed Unive rsity of MODERNA 12+ YRS 00:00:00 [place] [facility] ical VACCINE Branch SARS-COV-2 COVID-19 2021-01-06 Completed Unive rsity of MODERNA 12+ YRS 00:00:00 [place] [facility] ical VACCINE Branch SARS-COV-2 COVID-19 2021-01-06 Completed Unive rsity of MODERNA 12+ YRS 00:00:00 [place] Med ical VACCINE Branch SARS-COV-2 COVID-19 2021-01-06 Completed Unive rsity of MODERNA 12+ YRS 00:00:00 [place] Med ical VACCINE Branch SARS-COV-2 COVID-19 2021-01-06 Completed Unive rsity of MODERNA 12+ YRS 00:00:00 [place] Med ical VACCINE Branch SARS-COV-2 COVID-19 2021-01-06 Completed Unive rsity of MODERNA 12+ YRS 00:00:00 [place] [facility] ical VACCINE Branch SARS-COV-2 COVID-19 2020-12-09 Completed Unive rsity of MODERNA VACCINE 00:00:00 [place] [facility] ical Branch SARS-COV-2 COVID-19 2020-12-09 Completed Unive rsity of MODERNA 12+ YRS 00:00:00 [place] [facility] ical VACCINE Branch SARS-COV-2 COVID-19 2020-12-09 Completed Unive rsity of MODERNA 12+ YRS 00:00:00 [place] [facility] ical VACCINE Branch SARS-COV-2 COVID-19 2020-12-09 Completed Unive rsity of MODERNA 12+ YRS 00:00:00 [place] [facility] ical VACCINE Branch SARS-COV-2 COVID-19 2020-12-09 Completed Unive rsity of MODERNA 12+ YRS 00:00:00 [place] [facility] ical VACCINE Branch SARS-COV-2 COVID-19 2020-12-09 Completed Unive rsity of MODERNA 12+ YRS 00:00:00 [place] [facility] ical VACCINE Branch SARS-COV-2 COVID-19 2020-12-09 Completed Unive rsity of MODERNA 12+ YRS 00:00:00 [place] Med ical VACCINE Branch SARS-COV-2 COVID-19 2020-12-09 Completed Unive rsity of MODERNA 12+ YRS 00:00:00 [place] Med ical VACCINE Branch SARS-COV-2 COVID-19 2020-12-09 Completed Unive rsity of MODERNA 12+ YRS 00:00:00 [place] Med ical VACCINE Branch SARS-COV-2 COVID-19 2020-12-09 Completed Unive rsity of MODERNA 12+ YRS 00:00:00 [place] Med ical VACCINE Branch SARS-COV-2 COVID-19 2020-12-09 Completed Unive rsity of MODERNA 12+ YRS 00:00:00 [place] Med ical VACCINE Branch SARS-COV-2 COVID-19 2020-12-09 Completed Unive rsity of MODERNA 12+ YRS 00:00:00 [place] Med ical VACCINE Branch SARS-COV-2 COVID-19 2020-12-09 Completed Unive rsity of MODERNA 12+ YRS 00:00:00 [place] Med ical VACCINE Branch SARS-COV-2 COVID-19 2020-12-09 Completed Unive rsity of MODERNA 12+ YRS 00:00:00 [place] Med ical VACCINE Branch SARS-COV-2 COVID-19 2020-12-09 Completed Unive rsity of MODERNA 12+ YRS 00:00:00 [place] Med ical VACCINE Branch SARS-COV-2 COVID-19 2020-12-09 Completed Unive rsity of MODERNA 12+ YRS 00:00:00 [place] Med ical VACCINE Branch SARS-COV-2 COVID-19 2020-12-09 Completed Unive rsity of MODERNA 12+ YRS 00:00:00 [place] Med ical VACCINE Branch SARS-COV-2 COVID-19 2020-12-09 Completed Unive rsity of MODERNA 12+ YRS 00:00:00 [place] Med ical VACCINE Branch Vital Signs Vital Name Observation Time Observation Value Comments Source Systolic blood 2022-04-30 16:29:00 122 mm[Hg] Univer sity of pressure [facility] Diastolic blood 2022-04-30 16:29:00 83 mm[Hg] Unive rsity of pressure [facility] Heart rate 2022-04-30 16:29:00 81 /min [facility] Body temperature 2022-04-30 16:29:00 36.56 [facility] [facility] ersity [facility] Respiratory rate 2022-04-30 16:29:00 18 /min [facility] Body height 2022-04-30 16:29:00 170.2 cm [facility] Body weight 2022-04-30 16:29:00 108.682 kg [facility] BMI 2022-04-30 16:29:00 37.53 kg/m2 [facility] Oxygen saturation in 2022-04-30 16:29:00 97 /min University of Arterial blood by [facility] cristiano Pulse oximetry Branch Systolic blood 2022-04-13 16:52:00 119 mm[Hg] [facility]iver [facility] Diastolic blood 2022-04-13 16:52:00 80 mm[Hg] Unive [facility] Heart rate 2022-04-13 16:52:00 98 /min [facility] Body temperature 2022-04-13 16:52:00 36.72 Corinne [facility] Respiratory rate 2022-04-13 16:52:00 18 /min [facility] Body height 2022-04-13 16:52:00 170.2 cm [facility] Body weight 2022-04-13 16:52:00 107.502 kg [facility] BMI 2022-04-13 16:52:00 37.12 kg/m2 [facility] Systolic blood 2022-03-01 14:33:00 101 mm[Hg] [facility] Diastolic blood 2022-03-01 14:33:00 65 mm[Hg] [facility]ive [facility] Heart rate 2022-03-01 14:33:00 73 /min [facility] Body temperature 2022-03-01 14:33:00 37.06 Corinne [facility] Respiratory rate 2022-03-01 14:33:00 16 /min [facility] Body height 2022-03-01 14:33:00 170.2 cm [facility] Body weight 2022-03-01 14:33:00 104.282 kg [facility] BMI 2022-03-01 14:33:00 36.01 kg/m2 [facility] Oxygen saturation in 2022-03-01 14:33:00 96 /min [facility] of Arterial blood by [facility] Pulse oximetry Branch Systolic blood 2021-12-26 18:51:00 119 mm[Hg] [facility] Diastolic blood 2021-12-26 18:51:00 73 mm[Hg] [facility] pressure [facility] Heart rate 2021-12-26 18:51:00 88 /min [facility] Body temperature 2021-12-26 18:51:00 36.89 Corinne [facility] Respiratory rate 2021-12-26 18:51:00 16 /min [facility] Body height 2021-12-26 18:51:00 170.2 cm [facility] Body weight 2021-12-26 18:51:00 104.055 kg [facility] BMI 2021-12-26 18:51:00 35.93 kg/m2 [facility] Oxygen saturation in 2021-12-26 18:51:00 97 /min [facility] Arterial blood by [facility] Pulse oximetry [place] Procedures Procedure Date / Time Performing Clinician Source Performed INSURANCE CORRESPONDENCE 2022-06-05 06:01:00 Doctor Unassigned, [facility] FREE T4 2022-04-30 17:04:00 Uriah Palacios [facility] THYROID STIMULATING 2022-04-30 17:04:00 Uriah Palacios [facility] HORMONE [facility] COMP. METABOLIC PANEL 2022-04-30 17:04:00 Uriah Palacios [facility] ([id number]) [facility] LIPID PANEL ([id number])(TOTAL 2022-04-30 17:04:00 Uriah Palacios [facility] CHOLESTEROL, [facility] TRIGLYCERIDES, HDL) CBC WITH DIFF 2022-04-30 17:04:00 Uriah Palacios [facility] GLYCOSYLATED HEMOGLOBIN 2022-04-30 17:04:00 Uriah Palacios [facility] (A1C) [facility] FREE T3 2022-04-30 17:04:00 Uriah Palacios [facility] POCT HEMOGLOBIN A1C TEST 2022-04-30 16:45:00 Uriah Palacios [facility] ASSIGNMENT OF BENEFITS 2022-04-30 16:01:04 Doctor [facility]assigned, [facility] DISCLOSURE AND CONSENT, 2021-12-26 05:01:00 Doctor Unassigned, [facility] MED[facility] SURGICAL [facility] PROCEDURES POCT TEST 2021-12-26 00:00:00 Martina Madridsusy ty [facility] Encounters Start End Encounter Admission Attending Care Care Encounter Source Date/Time Date/Time Type Type Clinicians Facility Department ID 2021-09-14 Outpatient X [facility] K[facility]I [id number] Univers 11:38:23 ity of [facility] 2021-07-26 Outpatient P [facility] [id number] Univers 12:43:29 ity of [facility] 2022-10-29 2022-10-29 Outpatient R URIAH PALACIOS [facility] [id number] Univers 11:30:00 11:30:00 URIAH PALACIOS ity [facility] 2022-08-07 2022-08-07 Telephone DAIJA Grider 1.2.299.031 [id number] Univers 00:00:00 00:00:00 Candice BLAKE 350.1.13.10 [id number] [address] 2022-06-18 2022-06-18 Outpatient R URIAH PALACIOS [facility] [id number] Univers 11:00:00 11:00:00 URIAH PALACIOS ity [facility] 2022-06-12 2022-06-12 Outpatient R URIAH PALACIOS [facility] [id number] Univers 11:00:00 11:00:00 URIAH PALACIOS ity [facility] 2022-06-08 2022-06-08 Telephone Philip [facility] 1.2.840.114 [id number] Univers 00:00:00 00:00:00 Uriah WILLIS 350.1.13.10 it[place] [id number] [address] 2022-06-07 2022-06-07 Outpatient R CECILLE, [facility] [id number] Univers 17:20:00 17:20:00 ATTENDING ity of [facility] 2022-06-05 2022-06-05 [facility]phone [facility] 1.2.840.114 [id number] Univers 00:00:00 00:00:00 Ogechukwu [place] 350.1.13.10 ity of [place] [id number] Pa dical NAL [address] [place] [address] 2022-06-05 2022-06-05 [facility] 1.2.840.114 [id number] Univers 00:00:00 00:00:00 Ogechukwu [place] 350.1.13.10 it[place] [id number] Pa dical NAL [address] [place] [address] 2022-06-05 2022-06-05 Orders Doctor BILL 1.2.840.114 [id number] Univers 00:00:00 00:00:00 Only Unassigned, GIGI 350.1.13.10 ity of [place] [facility] 4.2.7.2.686 Jameel as [id number] [address] 2022-05-29 2022-05-29 [facility] 1.2.840.114 [id number] Univers 00:00:00 00:00:00 Ogechukwu [place] 350.1.13.10 ity of [place] [id number] Pa dical NAL [address] [place] [address] 2022-05-28 2022-05-28 Patient [facility] 1.2.840.114 [id number] Univers 00:00:00 00:00:00 Secure Msg Ogechukwu [place] 350.1.13.10 it[place] [id number] Pa dical NAL [address] [place] [address] 2022-05-15 2022-05-15 Outpatient R GERSON [facility] [id number] Univers 13:15:00 13:15:00 CORY ity [facility] 2022-04-30 2022-04-30 Chip Tuner 2, Adc Lab [facility] 1.2.840.114 [id number] Univers 11:15:00 11:15:00 Visit Uriah Palacios 350.1.13.1 0 it[place] of [place] [id number] Me dical NAL [address] [employer] 2022-04-30 2022-04-30 Outpatient R RUT PALACIOSYOVANA [facility] [id number] Univers 10:00:00 10:57:42 URIAH PALACIOS itbe [facility] 2022-04-30 2022-04-30 Office Philip [facility] 1.2.840.114 [id number] Univers 10:00:00 10:57:42 Visit Maxtobybrianna [facility] 350.1.13.10 ity of [place] [id number] Pa dical NAL [address] [employer] 2022-04-30 2022-04-30 Orders Doctor BILL 1.2.840.114 [id number] Univers 00:00:00 00:00:00 Only Unassigned, GIGI 350.1.13.10 ity of [place] [facility] 4.2.7.2.686 Jameel as [id number] [address] 2022-04-17 2022-04-17 Outpatient R PHILIP, OGYOVANA [facility] [id number] Univers 08:00:00 08:00:00 PHILIPRUTZAIRELAUREN ity [facility] 2022-04-13 2022-04-13 Outpatient R STEVE BRADSHAW [facility] B [id number] Univers 10:30:00 11:27:49 STEVE BRADSHAW itbe [facility] 2022-04-13 2022-04-13 Office Leeann [facility] 1.2.840.114 [id number] Univers 10:30:00 11:27:49 Visit Steve PATINO 350.1.13.10 it y of [place]'S 4.2.7.2.686 [facility] [id number] [address] 2022-04-05 2022-04-05 Outpatient R STEVE BRADSHAW [facility] B [id number] Univers 09:30:00 09:30:00 TRISTEVE GALDAMEZ [facility] 2022-03-29 2022-03-29 Refill Martina Madrid [facility] 1.2.840.114 [id number] Univers 00:00:00 00:00:00 CAREY 350.1.13.10 it y of [place]S 4.2.7.2.686 [facility] [id number] [address] 2022-03-16 2022-03-16 Outpatient R STEVE BRADSHAW [facility] B [id number] Univers 08:30:00 08:30:00 SANDYSTEVE GALDAMEZ [facility] 2022-03-01 2022-03-01 Outpatient R STEVE BRADSHAW [facility] B [id number] Univers 09:30:00 09:51:28 STEVE BRADSHAW be [facility] 2022-03-01 2022-03-01 Office ANAID Bradshaw [place] 1.2.840.114 [id number] Univers 09:30:00 09:51:28 Visit Steve PATINO 350.1.13.10 it y of [place]S 4.2.7.2.686 [facility] [id number] [address] 2022-01-08 2022-01-08 Outpatient R MARTINA MADRID [facility] [id number] Univers 08:45:00 08:45:00 ity [facility] 2022-01-03 2022-01-03 Outpatient R [facility] [id number] Univers 09:30:00 09:30:00 ity [facility] 2021-12-26 2021-12-26 Office Martina Madrid [facility] 1.2.840.114 [id number] Univers 13:30:00 14:19:33 Visit CAREY 350.1.13.10 it y [place] [id number] [address] 2021-12-26 2021-12-26 Outpatient R MARTINA MADRID [facility] [id number] Univers 13:30:00 14:19:33 ity of [facility] 2021-12-26 2021-12-26 Outpatient R MARTINA MADRID [facility] [id number] Univers 13:30:00 13:30:00 ity of [facility] 2021-12-26 2021-12-26 Orders Doctor BILL 1.2.840.114 [id number] Univers 00:00:00 00:00:00 Only Unassigned, GIGI 350.1.13.10 ity of [place] [facility] 4.2.7.2.686 Jameel as [id number] [address] 2021-12-12 2021-12-12 Outpatient R MARTINA MADRID [facility] [id number] Univers 09:30:00 10:27:07 ity [facility] 2021-12-12 2021-12-12 Routine Martina Madrid [facility] 1.2.840.114 [id number] Univers 09:30:00 10:27:07 CAREY 350.1.13.10 i ty of [place] [id number] [address] 2021-11-23 2021-11-23 Outpatient R MARTNIA MADRID [facility] [id number] Univers 08:15:00 08:15:00 ity [facility] 2021-11-08 2021-11-08 Outpatient R LEEANNHERVEALLYSON [facility] B [id number] Univers 15:15:00 15:42:57 LEEANN HERVEALLYSON ity [facility] 2021-11-08 2021-11-08 Routine Leeann [facility] 1.2.840.114 [id number] Univers 15:15:00 15:42:57 Steve PATINO 350.1.13.10 i ty of [place] [id number] [facility] [address] 2021-10-24 2021-10-24 Outpatient R STEVE BRADSHAW [facility] B [id number] Univers 09:15:00 09:44:36 STEVE BRADSHAW ity [facility] 2021-10-24 2021-10-24 Routine Leeann [facility] 1.2.840.114 [id number] Univers 09:15:00 09:44:36 Steve PATINO 350.1.13.10 i ty of Visit WOMEN'S 4.2.7.2.686 [facility] [id number] [facility] [address] 2021-10-16 2021-10-18 Hospital Martina Madrid [facility] 1.2.840.114 [id number] Univers 09:00:00 10:25:00 Encounter LAZARO 350.1.13.10 ity of [place] 4.2.7.2.686 [facility] [id number] [facility] [address] 2021-10-16 2021-10-18 Inpatient R MARTINA MADRID [facility]I [id number] Univers 09:00:00 10:25:00 ity of [facility] 2021-10-16 2021-10-16 Surgery Martina Madrid [facility] 1.2.840.114 [id number] Univers 11:00:00 12:16:00 LAZARO 350.1.13.10 i ty of [place] 4.2.7.2.686 [facility] [id number] [facility] 013 [address] 2021-10-13 2021-10-13 Laboratory Only, Adc Test [facility] 1.2.840. 114 [id number] Univers 08:15:00 08:30:00 Only Martina MadridJHONNY 350.1.13.10 ity of [place] 4.[address].7.[address] [place] [address] [id number] [facility] [address] 2021-10-13 2021-10-13 Outpatient R MARTINA MADRID [facility] [id number] Univers 08:15:00 08:15:00 ity [facility] 2021-10-13 2021-10-13 Orders Doctor BILL 1.2.840.114 [id number] Univers 00:00:00 00:00:00 Only Unassigned, GIGI 350.1.13.10 ity of [place] [facility] 4.2.7.2.686 Jameel as [id number] [address] 2021-10-09 2021-10-09 Outpatient R MARTINA MADRID [facility] [id number] Univers 10:00:00 10:51:30 ity [facility] 2021-10-09 2021-10-09 Routine Martina Madrid [facility] 1.2.840.114 [id number] Univers 10:00:00 10:51:30 CAREY 350.1.13.10 i ty of [place] [id number] [address] 2021-10-03 2021-10-03 Outpatient R STEVE BRADSHAW [facility] B [id number] Univers 08:15:00 08:39:59 TRIJOVANASTEVE DALTON [facility] 2021-10-03 2021-10-03 Routine Leeann [facility] 1.2.840.114 [id number] Univers 08:15:00 08:39:59 Steve PATINO 350.1.13.10 i ty of [place] [id number] [address] 2021-09-26 2021-09-26 Outpatient R MARTINA MADRID [facility] [id number] Univers 13:00:00 13:51:27 ity [facility] 2021-09-26 2021-09-26 Routine Martina Madrid [facility] 1.2.840.114 [id number] Univers 13:00:00 13:51:27 CAREY 350.1.13.10 i ty of [place] [id number] [address] 2021-09-26 2021-09-26 Orders Doctor KHAN 1.2.840.114 [id number] Univers 00:00:00 00:00:00 Only Unassigned, GIGI 350.1.13.10 [facility] 4.2.7.2.686 Jameel as [id number] [facility] [address] [place] 2021-09-14 2021-09-14 Outpatient X MARTINA MADRID [facility] [id number] Univers 07:12:00 11:35:00 ity of [facility] 2021-09-14 2021-09-14 Emergency Marquise Koehler [facility] 1.2.840.11 [id number] Univers 07:12:00 11:35:00 Martina Madrid 350.1.13.10 ity [facility].2.7.2.686 [facility] [id number] [facility] [address] [place] 2021-09-13 2021-09-13 Urgent Dino Agrawal [facility] 1.2.840.114 [id number] Univers 10:00:00 10:20:00 Care Tiffanie Galicia [facility] 350.1.13.10 ity of [place] 4.2.7.2.686 Jameel as RACHAEL?BLEA [id number] [facility] [address] MEDICAL OFFICE [facility] 2021-09-13 2021-09-13 Outpatient R NGHIA [facility] [id number] Univers 10:00:00 10:00:00 DINO [facility] 2021-09-13 2021-09-13 Chip Tuner Lab, Ang - Db [facility] 1.2.840.1 14 [id number] Univers 09:15:00 09:30:00 Visit Martina Madrid [facility] 350.1.13.10 ity of [place] 4.2.7.2.686 Jameel as RACHAEL?BLEA [id number] [facility] [address] MEDICAL OFFICE BUILDING 2021-09-12 2021-09-12 Outpatient R MARTINA MADRID [facility] [id number] Univers 08:00:00 08:41:52 ity of [facility] 2021-09-12 2021-09-12 Routine Martnia Madrid [facility] 1.2.840.114 [id number] Univers 08:00:00 08:41:52 CAREY 350.1.13.10 i ty of [place] [id number] [address] 2021-09-11 2021-09-11 Chip Tuner Ultrasound, Juliana [facility] 1.2 .840.114 [id number] Univers 15:30:00 16:15:00 Visit Denita Lan [employer] 350.1.13.10 ity of REGIONAL 4.2.7.2.686 Jameel as MATERNAL [id number] Med ical & CHILD [address] [place] [address] 2021-09-11 2021-09-11 Outpatient P KRISTEL [facility] [id number] Univers 15:30:00 15:30:00 [facility] 2021-08-29 2021-08-29 Outpatient R STEVE BRADSHAW [facility] B [id number] Univers 08:00:00 08:39:43 [facility] 2021-08-29 2021-08-29 Routine Leeann [facility] 1.2.840.114 [id number] Univers 08:00:00 08:39:43 Steve PATINO 350.1.13.10 i ty of [place] [id number] [address] 2021-08-17 2021-08-17 Patient Vickie [facility] 1.2.285.401 [id number] Univers 00:00:00 00:00:00 Secure Msg Yvonne PATINO 350.1.13.10 ity of PEDIATRIC [place].7.2.[place] [facility] [id number] [address] 2021-08-15 2021-08-15 Chip Tuner Lab, Dilip - Db [facility] 1.2.840.1 14 [id number] Univers 09:45:00 10:00:00 Visit Martina Madrid [facility] 350.1.13.10 ity [facility] 4.2.7.2.686 Jameel as RACHAEL?BLEA [id number] Pa sherly [address] MEDICAL OFFICE BUILDING 2021-08-15 2021-08-15 Outpatient R MARTINA MADRID [facility] [id number] Univers 09:45:00 09:45:00 ity of [facility] 2021-08-15 2021-08-15 Routine Martina Madrid [facility] 1.2.840.114 [id number] Univers 08:00:00 08:49:08 CAREY 350.1.13.10 i ty of Visit WOMEN'S 4.2.7.2.686 [place] [facility] [id number] [address] 2021-08-02 2021-08-02 Chip Tuner Lab, Ang - [facility] 1.2.840.1 14 [id number] Univers 08:00:00 08:15:00 Visit Martina Madrid 350.1.13.10 ity of [place] 4.2.7.2.686 Jameel as RACHAEL?BLEA [id number] [address] MEDICAL OFFICE BUILDING 2021-08-02 2021-08-02 Outpatient R MARTINA MADRID [facility] [id number] Univers 08:00:00 08:00:00 ity of [facility] 2021-08-01 2021-08-01 Outpatient R MARTINA MADRID [facility] [id number] Univers 08:00:00 08:39:15 ity of [facility] 2021-08-01 2021-08-01 Routine Martina Madrid [facility] 1.2.840.114 [id number] Univers 08:00:00 08:39:15 CAREY 350.1.13.10 i ty of Visit WOMEN'S 4.2.7.2.686 [facility] [id number] [address] 2021-07-26 2021-07-26 Outpatient P MARTINA MADRID [facility] [id number] Univers 07:57:00 12:25:00 ity [facility] 2021-07-26 2021-07-26 Hospital Martina Madrid [facility] 1.2.840.114 [id number] Univers 07:57:00 12:25:00 Encounter ANGLEJHONNY 350.1.13.10 ity of [place] 4.2.7.2.686 [facility] [id number] [address] 2021-07-20 2021-07-20 Chip Tuner Lab, Ang - Db [facility] 1.2.840.1 14 [id number] Univers 08:30:00 08:45:00 Visit Martina Madrid 350.1.13.10 ity of [place] 4.2.7.2.686 Jameel as RACHAEL?BLEA [id number] Me sherly [address] MEDICAL OFFICE BUILDING 2021-07-20 2021-07-20 Outpatient R MARTINA MADRID [facility] [id number] Univers 08:30:00 08:30:00 ity [facility] 2021-07-17 2021-07-17 Outpatient R STEVE BRADSHAW [facility] B [id number] Univers 11:00:00 11:33:19 [facility] 2021-07-17 2021-07-17 Routine LauriFormerly [facility] 1.2.840.114 [id number] Univers 11:00:00 11:33:19 Steve PATINO 350.1.13.[address] [facility] 4.2.7.2.686 [facility] [id number] [facility] [address] 2021-07-14 2021-07-14 Outpatient R [facility] [id number] Univers 08:30:00 08:30:00 ity [facility] 2021-07-10 2021-07-10 Hospital Martina Madrid [facility] 1.2.840.114 [id number] Univers 08:00:00 12:00:00 Encounter LAZARO 350.1.13.10 ity [facility] 4.2.7.2.686 [facility] [id number] [facility] [address] 2021-07-10 2021-07-10 Outpatient P MARTINA MADRID [facility] [id number] Univers 08:00:00 12:00:00 ity [facility] 2021-07-05 2021-07-05 Outpatient R MARTINA MADRID [facility] [id number] Univers 09:00:00 09:00:00 ity [facility] 2021-07-03 2021-07-03 Outpatient R MARTINA MADRID [facility] [id number] Univers 11:15:00 12:19:43 ity [facility] 2021-07-03 2021-07-03 Routine Martina Madrid [facility] 1.2.840.114 [id number] Univers 11:15:00 12:19:43 CAREY 350.1.13.10 i ty of Visit [place] [id number] [address] 2021-06-28 2021-06-28 Refill Martina Madrid [facility] 1.2.840.114 [id number] Univers 00:00:00 00:00:00 CAREY 350.1.13.10 it y [place] [id number] [address] 2021-06-19 2021-06-19 Outpatient P [facility] [id number] Univers 10:15:00 10:15:00 ity [facility] 2021-06-07 2021-06-07 Outpatient R [facility] [id number] Univers 13:00:00 13:00:00 ity [facility] 2021-06-06 2021-06-06 Outpatient R MARTINA MADRID [facility] [id number] Univers 08:00:00 08:37:27 ity [facility] 2021-06-06 2021-06-06 Routine Martina Madrid [facility] 1.2.840.114 [id number] Univers 08:00:00 08:37:27 CAREY 350.1.13.10 i ty of [place] [id number] [address] 2021-06-06 2021-06-06 Outpatient R MARTINA MADRID [facility] [id number] Univers 08:00:00 08:00:00 [facility] 2021-05-31 2021-05-31 Chip Tuner 3, [facility] Us Room UNIVERSIT 1 .2.840.114 [id number] Univers 14:00:00 14:18:49 Visit Vani Garcia Y HEALTH 350.1.13.10 ity of CLINICS 4.2.7.2.686 [facility] [id number] [address] 2021-05-31 2021-05-31 Outpatient Ivan GARCIA [facility] [id number] Univers 14:00:00 14:00:00 VANI ity [facility] 2021-05-31 2021-05-31 Outpatient R MARTINA MADRID [facility] [id number] Univers 08:00:00 08:00:00 ity [facility] 2021-05-30 2021-05-30 Telephone Martina Madrid [facility] 1.2.840.11 [id number] Univers 00:00:00 00:00:00 CAREY 350.1.13.10 it y of WOMEN'S 4.2.7.2.686 [facility] HEALTH [id number] [address] 2021-05-09 2021-05-09 Outpatient R MARTINA MADRID [facility] [id number] Univers 08:00:00 08:36:40 ity [facility] 2021-05-09 2021-05-09 Routine Martina Madrid [facility] 1.2.840.114 [id number] Univers 08:00:00 08:36:40 CAREY 350.1.13.10 i ty of Visit WOMEN'S 4.2.7.2.686 [place] [facility] [id number] [address] 2021-05-09 2021-05-09 Outpatient R MARTINA MADRID [facility] [id number] Univers 08:00:00 08:00:00 ity [facility] 2021-05-09 2021-05-09 Letter Martina Madrid [facility] 1.2.840.114 [id number] Univers 00:00:00 00:00:00 (Out) CAREY 350.1.13.10 it y of [place] 4.2.7.2.686 [place] [facility] [id number] [address] 2021-04-26 2021-04-26 Outpatient Sammi AGRAWAL [facility] [id number] Univers 18:00:00 18:37:59 DINO ity [facility] 2021-04-26 2021-04-26 Urgent Only, Ang Db Test [facility] 1.2.840. 114 [id number] Univers 18:00:00 18:20:00 Care Nghia Dino HEALTH 350.1.13.10 ity of [place] 4.2.7.2.686 Jameel as RACHAEL?BLEA [phone] [address] [facility] 2021-04-26 2021-04-26 Outpatient R [facility] [id number] Univers 18:00:00 18:00:00 ity of [facility] 2021-04-19 2021-04-19 Telephone Martina Madrid [facility] 1.2.840.11 [id number] Univers 00:00:00 00:00:00 CAREY 350.1.13.10 it [place] [id number] [address] 2021-04-17 2021-04-17 Outpatient R MARTINA MADRID [facility] [id number] Univers 13:15:00 13:15:00 ity of [facility] 2021-04-14 2021-04-14 Telephone Martina Madrid [facility] 1.2.840.11 [id number] Univers 00:00:00 00:00:00 CAREY 350.1.13.10 [place] [id number] [address] 2021-04-14 2021-04-14 Case Martina Madrid [facility] 1.2.840.114 [id number] Univers 00:00:00 00:00:00 Management CAREY 350.1.13.10 [place] [facility] [id number] [address] 2021-04-13 2021-04-13 [facility], Ang - Db [facility] 1.2.840.1 [id number] Univers 07:30:00 09:14:02 Visit Martina Madrid [facility] 350.1.13.10 ity of [facility] 4.2.7.2.686 Jameel as RACHAEL?BLEA [id number] [address] MEDICAL OFFICE BUILDING 2021-04-13 2021-04-13 Outpatient R MARTINA MADRID [facility] [id number] Univers 07:30:00 07:30:00 ity [facility] 2021-04-13 2021-04-13 Orders Doctor BILL 1.2.840.114 [id number] Univers 00:00:00 00:00:00 Only Unassigned, GIGI 350.1.13.10 ity of [place] [facility] 4.2.7.2.686 Jameel as [id number] [address] 2021-04-12 2021-04-12 Outpatient R [facility] [id number] Univers 09:15:00 09:15:00 ity [facility] 2021-04-11 2021-04-11 Outpatient R MARTINA MADRID [facility] [id number] Univers 08:00:00 08:47:03 ity [facility] 2021-04-11 2021-04-11 Routine Martina Madrid [facility] 1.2.840.114 [id number] Univers 08:00:00 08:47:03 CAREY 350.1.13.10 i ty of [place] [id number] [address] 2021-04-10 2021-04-10 Telephone Martina Madrid 1.2.840.11 [id number] Univers 00:00:00 00:00:00 CAREY 350.1.13.10 [place] [facility] [id number] [address] 2021-03-27 2021-03-27 Outpatient R MARTINA MADRID [facility] [id number] Univers 14:30:00 16:33:42 ity [facility] 2021-03-27 2021-03-27 Initial Martina Madrid 1.2.840.114 [id number] Univers 14:20:02 16:33:42 CAREY 350.1.13.10 i ty of [place] [id number] [facility] [address] Results Test Description Test Time Test Comments Results Result Comments Source POCT HEMOGLOBIN A1C TEST 2022-04-30 16:45:00 Test Item Value Reference Range Interpretation Comme nts POCT HBA1C (test code = 4548-4) 4[facility]9 [facility] [id number] 16:45:00 Test Item Value Reference Range Interpretation Comments POCT HBA1C (test code = 4548-4) 4.9 % 4-6 [facility] [id number] 19:20:00 Test Item Value Reference Range Interpretation Comments POCT PREG (test code = 1605) Negative On board controls acceptable with C Yes Line (test code = 3574) POCT PREG LOT # (test code = 3575) POCT PREG TEST DATE (test code = 3576) [facility]
[2022-08-25] MEDS ORDERED: FAMOTIDINE 20 MG/2 ML VIAL IV ONE (13:13)
[2022-08-25] MEDS ORDERED: NA CHLORIDE 0.9% 1,000 ML ONE (13:13)
[2022-08-25 13:19] LABS: Absolute Lymphocytes (CBC) 2.7 K/uL (0.7-4.9); Hematocrit 39.7 % (36.0-45.0); Lymphocytes % 34.1 % (15.3-44.8); MCV 75.9 fL (80-100); MPV 7.4 fL (7.6-11.3); RBC Red Blood Cell Count 5.23 M/uL (3.86-4.86)
[2022-08-25 13:53] LABS: Albumin 3.4 g/dL (3.4-5.0); Bilirubin Total 0.3 mg/dL (0.2-1.0); Potassium 3.6 mEq/L (3.5-5.1); Protein, Total 8.3 g/dL (6.4-8.2)
--- NOTE | 2022-08-25 14:00 | ER ---
Nurse's Notes [facility] Name: Mana Duque Age: 27 yrs Sex: Female : 1995 Arrival Date: 08/25/2022 Time: 12:13 Bed 9 Private MD: Diagnosis: Encounter for examination of blood pressure;Elevated blood-pressure reading, without diagnosis of hypertension;Iron deficiency anemia, unspecified;Nausea with vomiting, unspecified Presentation: 08/25 12:30 Chief complaint: Patient states: headache X 4 days, nausea, SOB, burning sensation in iw chest , BP has been high over past few days. Coronavirus screen: At this time, the client does not indicate any symptoms associated with coronavirus-19. Ebola Screen: Patient negative for fever greater than or equal to 101.5 degrees Fahrenheit, and additional compatible Ebola Virus Disease symptoms Patient denies exposure to infectious person. Patient denies travel to an Ebola-affected area in the 21 days before illness onset. No symptoms or risks identified at this time. Initial Sepsis Screen: Does the patient meet any 2 criteria? No. Patient's initial sepsis screen is negative. Does the patient have a suspected source of infection? No. Patient's initial sepsis screen is negative. Risk Assessment: Do you want to hurt yourself or someone else? Patient reports no desire to harm self or others. Onset of symptoms was August 21, 2022. 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 Provider notfiied. Historical: - Allergies: 12:32 Rocephin; iw 12:32 PENICILLINS; iw - Home Meds: 12:32 None [Active]; iw - PMHx: 12:32 Anemia; GALLSTONES; Umbilical hernia; iw - PSHx: 12:32 section; iw - Immunization history:: Adult Immunizations. - Social history:: Smoking status: . Screenin:55 [facility] ED Fall Risk Assessment (Adult) History of falling in the last 3 months, nj1 including since admission No falls in past 3 months (0 pts) Confusion or Disorientation No (0 pts) Intoxicated or Sedated No (0 pts) Impaired Gait No (0 pts) Mobility Assist Device Used No (0 pt) Altered Elimination No (0 pt) Score/Fall Risk Level 0 - 2 = Low Risk Oriented to surroundings, Maintained a safe environment, Hourly rounding (assess needs \\T\\ fall precautionary measures) done. 12:55 Abuse screen: Denies threats or abuse. Denies injuries from another. Nutritional nj1 screening: No deficits noted. Tuberculosis screening: No symptoms or risk factors identified. Assessment: 12:55 General: Appears in no apparent distress. comfortable, Behavior is calm, fussy. nj1 12:55 Pain: Complains of pain in Head Pain currently is 8 out of 10 on a pain scale. Quality nj1 of pain is described as aching. Neuro: Level of Consciousness is awake, alert, obeys commands, Oriented to person, place, time, situation. Neuro: Reports headache since 4 days ago. Cardiovascular: Patient's skin is warm and dry. Respiratory: Airway is patent Respiratory effort is even, unlabored. 12:58 Reassessment: Pt refuses urinary testing. "I am not if that's what you want to nj1 know" This RN attempts to give education, pt refuses, [place] HOME APPLIANCE TECHNICIAN notified. 14:15 Reassessment: Patient appears in no apparent distress at this time. Patient and/or nj1 family updated on plan of care and expected duration. Pain level reassessed. Patient is alert, oriented x 3, equal unlabored respirations, skin warm/dry/pink. Patient states symptoms have improved. Vital Signs: 12:30 BP 132 / 82; Pulse 75; Resp 16; Temp 98.2; Pulse Ox 98% on R/A; Weight 107.95 kg; iw Height 5 ft. 7 in. ; Pain 7/10; 14:05 BP 115 / 70; snw 14:15 BP 115 / 70; Resp 18; Pain 8/10; nj1 12:30 Body Mass Index 37.28 (107.95 kg, 170.18 cm) iw 12:30 Pain Scale: Adult iw 14:15 Pain Scale: Adult wi1 ED Course: 12:20 Patient arrived in ED. am2 12:27 Milena Mayorga FNP-C is PHCP. snw 12:27 Rosales, Mike, DO is Attending Physician. snw 12:32 Triage completed. iw 12:32 Arm band placed on. iw 12:41 Radha Xiong, RN is Primary Nurse. nj1 12:55 Patient has correct armband on for positive identification. Call light in reach. Adult nj1 w/ patient. 12:58 Inserted saline lock: 24 gauge in right antecubital area, using aseptic technique. nj1 Blood collected. 13:03 CBC with Diff Sent. nj1 13:03 CMP Sent. nj1 14:15 No provider procedures requiring assistance completed. nj1 14:15 IV discontinued, intact, bleeding controlled. nj1 Administered Medications: 13:15 Drug: NS 0.9% IV 1000 ml Route: IV; Rate: 1 bolus; Site: right antecubital; nj1 14:15 Follow up: Response: No adverse reaction; IV Status: Completed infusion; IV Intake: nj1 1000ml 13:39 Not Given (Patient Refused): Famotidine IVP 20 mg IVP once; dilute with 10 mL 0.9% nj1 NaCl; give over 2 minutes Medication: 14:15 VIS not applicable for this client. nj1 Intake: 14:15 IV: 1000ml; Total: 1000ml. nj1 Outcome: 13:59 Discharge ordered by MD. snw 14:15 Discharged to home ambulatory. nj1 14:15 Condition: stable 14:15 Discharge instructions given to patient, Instructed on discharge instructions, follow up and referral plans. medication usage, Demonstrated understanding of instructions, follow-up care, medications, Prescriptions given X 1. 14:22 Patient left the ED. nj1 Signatures: Milena Mayorga, HARDENING MACHINE OPERATOR HELPER-C HARDENING MACHINE OPERATOR HELPER-Csnw Palak Magaña, RN RN Ayanna Salguero Norma, RN RN nj1
--- NOTE | 2022-08-25 14:00 | EDPHYS ---
Physician Documentation [facility] Name: Mana Duque Age: 27 yrs Sex: Female : 1995 Arrival Date: 08/25/2022 Time: 12:13 Bed 9 Private MD: ED Physician Mike Rosales HPI: 08/25 13:02 This 27 yrs old Female presents to ER via Ambulatory with complaints of High snw Blood Pressure, Headache, Nausea. 13:02 The patient has elevated blood pressure and discovered this at home, with a home snw device. Onset: The symptoms/episode began/occurred acutely, 3 day(s) ago, and became persistent. Associated signs and symptoms: Pertinent positives: dizziness, nausea, vomiting. Severity of symptoms: At its worst the blood pressure was 150 mm Hg. It is unknown whether or not the patient has had similar symptoms in the past. The patient has not recently seen a physician. 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 Provider notfiied. Historical: - Allergies: 12:32 Rocephin; iw 12:32 PENICILLINS; iw - Home Meds: 12:32 None [Active]; iw - PMHx: 12:32 Anemia; GALLSTONES; Umbilical hernia; iw - PSHx: 12:32 section; iw - Immunization history:: Adult Immunizations. - Social history:: Smoking status: . ROS: 13:00 Eyes: Negative for injury, pain, redness, and discharge, ENT: Negative for injury, snw pain, and discharge, Neck: Negative for injury, pain, and swelling. 13:00 Respiratory: Negative for shortness of breath, cough, wheezing, and pleuritic chest pain. 13:00 Back: Negative for injury and pain, : Negative for injury, bleeding, discharge, and swelling, MS/Extremity: Negative for injury and deformity, Skin: Negative for injury, rash, and discoloration. 13:00 Constitutional: Positive for fatigue, malaise, poor PO intake. 13:00 Cardiovascular: Positive for chest pain, of the anterior aspect of left upper chest. 13:00 Abdomen/GI: Positive for nausea and vomiting. 13:00 Neuro: Positive for near syncope. Exam: 12:59 Constitutional: This is a well developed, well nourished patient who is awake, alert, snw and in no acute distress. Head/Face: Normocephalic, atraumatic. Eyes: Pupils equal round and reactive to light, extra-ocular motions intact. Lids and lashes normal. Conjunctiva and sclera are non-icteric and not injected. Cornea within normal limits. Periorbital areas with no swelling, redness, or edema. ENT: Nares patent. No nasal discharge, no septal abnormalities noted. Tympanic membranes are normal and external auditory canals are clear. Oropharynx with no redness, swelling, or masses, exudates, or evidence of obstruction, uvula midline. Mucous membranes moist. Neck: Trachea midline, no thyromegaly or masses palpated, and no cervical lymphadenopathy. Supple, full range of motion without nuchal rigidity, or vertebral point tenderness. No Meningismus. Chest/axilla: Normal chest wall appearance and motion. Nontender with no deformity. No lesions are appreciated. Cardiovascular: Regular rate and rhythm with a normal S1 and S2. No gallops, murmurs, or rubs. Normal PMI, no JVD. No pulse deficits. Respiratory: Lungs have equal breath sounds bilaterally, clear to auscultation and percussion. No rales, rhonchi or wheezes noted. No increased work of breathing, no retractions or nasal flaring. Abdomen/GI: Soft, non-tender, with normal bowel sounds. No distension or tympany. No guarding or rebound. No evidence of tenderness throughout. Back: No spinal tenderness. No costovertebral tenderness. Full range of motion. Skin: Warm, dry with normal turgor. Normal color with no rashes, no lesions, and no evidence of cellulitis. MS/ Extremity: Pulses equal, no cyanosis. Neurovascular intact. Full, normal range of motion. Neuro: Awake and alert, GCS 15, oriented to person, place, time, and situation. Cranial nerves II-XII grossly intact. Motor strength 5/5 in all extremities. Sensory grossly intact. Cerebellar exam normal. Normal gait. Psych: Awake, alert, with orientation to person, place and time. Behavior, mood, and affect are within normal limits. Vital Signs: 12:30 BP 132 / 82; Pulse 75; Resp 16; Temp 98.2; Pulse Ox 98% on R/A; Weight 107.95 kg; iw Height 5 ft. 7 in. ; Pain 7/10; 14:05 BP 115 / 70; snw 14:15 BP 115 / 70; Resp 18; Pain 8/10; nj1 12:30 Body Mass Index 37.28 (107.95 kg, 170.18 cm) iw 12:30 Pain Scale: Adult iw 14:15 Pain Scale: Adult nj1 MDM: 12:41 Patient medically screened. snw 12:59 Differential diagnosis: viral illness, . Data interpreted: Pulse oximetry: on snw room air is 98 %. Interpretation: normal. Data reviewed: vital signs, nurses notes. Counseling: I had a detailed discussion with the patient and/or guardian regarding: the historical points, exam findings, and any diagnostic results supporting the discharge/admit diagnosis, the presence of at least one elevated blood pressure reading (>120/80) during this emergency department visit, lab results, the need for outpatient follow up. Special discussion: Based on the patient's history, exam, and Dx evaluation, there is no indication for emergent intervention or inpatient Tx. It is understood by the patient/guardian that if the Sx's persist or worsen they need to return immediately for re-evaluation. Based on the patient's Hx, exam, and Dx evaluation, there is no indication for emergent surgery or inpatient Tx. It is understood by the patient/guardian that if the Sx's persist or worsen they need to return immediately for re-evaluation. I have referred the patient to see his PCP for further evaluation of high blood pressure. Based on the history and exam findings, there is no indication for further emergent testing or inpatient evaluation. I discussed with the patient/guardian the need to see the primary care provider for further evaluation of the symptoms. 13:09 Refusal of service: The patient/guardian displays adequate decision making capability snw and despite a detailed discussion of alternatives, benefits, risks, and consequences refuses: pt refuses urine specimen, refuses ultrasound, pt agitated on arrival as to treatment plan. States she is only here because she has kids. . 08/25 12:44 Order name: CBC with Diff; Complete Time: 13:36 snw 08/25 12:44 Order name: CMP; Complete Time: 13:59 snw 08/25 12:44 Order name: Lipase; Complete Time: 13:59 snw 08/25 12:44 Order name: IV Saline Lock; Complete Time: 13:03 snw 08/25 12:44 Order name: Labs collected and sent; Complete Time: 13:03 snw Administered Medications: 13:15 Drug: NS 0.9% IV 1000 ml Route: IV; Rate: 1 bolus; Site: right antecubital; nj1 14:15 Follow up: Response: No adverse reaction; IV Status: Completed infusion; IV Intake: nj1 1000ml 13:39 Not Given (Patient Refused): Famotidine IVP 20 mg IVP once; dilute with 10 mL 0.9% nj1 NaCl; give over 2 minutes Disposition: 13:11 Co-signature as Attending Physician, Mike Rosales DO I was immediately available on-site ms3 in the Emergency Department for consultation in the care of the patient. Disposition Summary: 08/25/22 13:59 Discharge Ordered Location: Home snw Condition: Stable snw Diagnosis - Encounter for examination of blood pressure snw - Elevated blood-pressure reading, without diagnosis of hypertension snw - Iron deficiency anemia, unspecified snw - Nausea with vomiting, unspecified snw Followup: snw - With: Private Physician - When: 2 - 3 days - Reason: Recheck today's complaints, Continuance of care, Re-evaluation by your physician Followup: snw - With: Emergency Department - When: As needed - Reason: Worsening of condition Discharge Instructions: - Discharge Summary Sheet snw - Iron Deficiency Anemia, Adult snw - Dehydration, Adult snw - Iron-Rich Diet snw - Hypertension, Adult snw - Nausea and Vomiting, Adult snw - DASH Eating Plan snw - Rehydration, Adult snw - Form - Blood Pressure Record Sheet snw Forms: - Medication Reconciliation Form snw - Thank You Letter snw - Antibiotic Education snw - Prescription Opioid Use snw Prescriptions: - promethazine 25 mg Oral Tablet - take 1 tablet by ORAL route every 6 hours As needed; 20 tablet; Refills: 0, snw Product Selection Permitted Signatures: Dispatcher MedDiurnalst Milena Ross FNP-C DATA WAREHOUSING MANAGER-Csnw Palak Magaña RN Mike Palomino DO DO ms3 Tyrese, Radha, RN RN nj1 Corrections: (The following items were deleted from the chart) 13:42 12:45 Abdomen Limited+US.RAD.LITO ordered. EDMS EDMS
[2022-08-25 14:57] VITALS: TEMP 98.2; O2SAT 98
[2022-08-25 14:58] VITALS: BP 115/70
== END 2022-08-25 14:22 | disposition home or self-care (01) ==
LOC: ER 12:13
DX: R03.0 Elevated blood-pressure reading, without diagnosis of hypertension (principal); D50.9 Iron deficiency anemia, unspecified; R11.2 Nausea with vomiting, unspecified; Z88.0 Allergy status to penicillin; Z88.3 Allergy status to other anti-infective agents
CPT/HCPCS: 85025; 36415; 83690; 80053; J7030; 96360; 99284